=== PATIENT | male | born 1975 | race Caucasian/White ===

== ENCOUNTER 2021-05-05 14:39 | Inpatient (IN) | payer OTHER, SELFPAY ==
--- NOTE | ~2021-05-05 | XR_ITS ---
EXAMINATION: XR FOOT, RIGHT CLINICAL INFORMATION: Injection of the fifth toe. COMPARISON: None TECHNIQUE: AP, lateral, and oblique views of the right foot. 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 There is destruction of bone involving the distal phalanx of the fifth toe with loss of the distal tuft and portions of the distal shaft of the bone. Low-attenuation of bone extends all way to the subarticular bone of the distal phalanx. The fifth toe proximal phalange is normal. There has been prior amputation of the third toe at the distal shaft of the metatarsal. No other area of destruction of bone. Small vessel calcifications in the soft tissues of the foot consistent with diabetes. Large bone spur at the dorsum of the talus at the talonavicular joint. There are bone spurs of the calcaneus at the plantar surface and posterior surface of the calcaneus. XR/XR foot RT min 3V IMPRESSION: Destruction of the distal phalange of the fifth toe consistent with osteomyelitis. The proximal phalange remains intact.
[2021-05-05 15:06] VITALS: BP 149/89; PULSE 81; RESP 18; TEMP 36.8; O2SAT 98; BMI 45.4
[2021-05-05 16:31] LABS: MANUAL DIFF FLAG NO
[2021-05-05 16:35] LABS: Basophils Percent Auto 0.5 % (0-2); Eosinophils Percent Auto 0.6 % (0-4); Hematocrit 35.6 % (42.0-52.0); Hemoglobin 12.5 g/dl (14.0-18.0); Imm Gran Abs Auto 0.09 X10*3/uL (0.00-0.03); Imm Gran Pct Auto 1.4 % (0.0-0.4); Lymphocytes Absolute Auto 1.2 X10*3/uL (1.2-4.9); Lymphocytes Percent Auto 17.9 % (20-40); Mean Corpuscular HGB Conc 35.1 g/dl (31.0-36.0); Mean Corpuscular Hemoglobin 31.3 pg (27.0-33.0); Mean Corpuscular Volume 89.2 fL (80.0-98.0); Mean Platelet Volume 11.7 fL (9.4-12.4); Monocytes Absolute Auto 0.6 X10*3/uL (0.1-1.2); Monocytes Percent Auto 8.9 % (2-11); Neutrophils Absolute Auto 4.7 x10*3/uL (2.0-8.3); Neutrophils Percent Auto 70.7 % (45-73); Platelet Count 246 X10*3/uL (160-400); Red Blood Count 3.99 X10*6/uL (4.60-5.80); White Blood Count 6.7 X10*3/uL (4.8-10.8)
[2021-05-05 17:07] LABS: Anion Gap 12 (12-20); Blood Urea Nitrogen 22 mg/dL (9-16); Calcium 8.9 mg/dL (8.4-10.2); Carbon Dioxide 28 mmol/L (22-29); Chloride 99 mmol/L (96-108); Creatinine Clr Calc Pharmacy 82.8; Estimated Glomerular Filt Rate 57; Glucose Random 400 mg/dL (60-115); Potassium 4.8 mmol/L (3.3-5.1); Sodium 134 mmol/L (135-145)
[2021-05-05 17:19] VITALS: BP 137/79; PULSE 83; RESP 17; TEMP 37.5; O2SAT 97
--- NOTE | 2021-05-05 17:33 | ED.GENADULT ---
HPI - General Adult General Chief complaint: Wound/Laceration Stated complaint: wound check Time Seen by Provider: 05/05/21 17:24 Source: patient Mode of arrival: ambulatory Limitations: no limitations History of Present Illness HPI narrative: 45-year-old male with past medical history of diabetes noncompliant presents to ED for worsening right foot wound. Patient states wound now is necrotic. Patient states no fever chills. Patient states the reason he is not compliant with his diabetes medications because he has been without insulin for the past 2 months. Patient states he called his primary care provider and stated would not be able to prescribe a new insulin prescription until we see him. Patient states he does not have appointment for next week. Related Data Home Medications Medication Instructions Recorded Confirmed aspirin 81 mg chewable tablet 81 mg PO DAILY 05/05/21 05/05/21 atorvastatin 80 mg tablet 80 mg PO DAILY 05/05/21 05/05/21 insulin glargine 100 unit/mL (3 40 unit SUBCUT DAILY 05/05/21 05/05/21 mL) subcutaneous pen (Lantus Solostar U-100 Insulin) insulin lispro 100 unit/mL 1 sliding scale dose SUBCUT TID 05/05/21 05/05/21 subcutaneous pen (Humalog KwikPen (U-100) Insulin) lisinopril 20 mg tablet 20 mg PO DAILY 05/05/21 05/05/21 Allergies Allergy/AdvReac Type Severity Reaction Status Date / Time piperacillin [From ZOSYN] Allergy Unknown SWELLING Verified 05/05/21 15:05 tazobactam [From ZOSYN] Allergy Unknown SWELLING Verified 05/05/21 15:05 Review of Systems Review of Systems: Infected foot Yes all other systems are reviewed and are negative [facility] Past Medical History Medical History (Updated 05/05/21 @ 20:42 by BAKARI Flores) Diabetes mellitus, type 2 Social History Social History Advance Directives: No Advance Directives Information Provided: No Physical Exam Vital Signs: Vital Signs: Last Vital Signs Temp 99.5 F 05/05/21 17:19 Pulse 83 05/05/21 17:19 Resp 17 05/05/21 17:19 BP 137/79 05/05/21 17:19 Pulse Ox 97 05/05/21 17:19 BMI result Body Mass Index 45.4 Const: General: cooperative, healthy appearing, comfortable, no acute distress, well developed and alert Orientation/consciousness: patient oriented x3 HENMT: Head: Yes normal to inspection, Yes No palpable skull fracture present, Yes normocephalic and Yes atraumatic Eyes: General: appearance normal, both eyes and all related structures Neck: Neck: Yes normal visual inspection, Yes full ROM, Yes no lymphadenopathy, Yes no meningeal signs, Yes trachea midline, Yes supple, No anterior neck swelling and No tender Chest: Chest palpation & inspection: normal inspection of the chest and normal palpation of entire chest wall Resp: Effort & Inspection: normal respiratory effort and able to speak in complete sentences Auscultation: clear to auscultation bilaterally Cardio: Jugular venous distension: no JVD Heart sounds: S1 normal heart sound present and S2 normal heart sound present GI: Inspection: Yes normal to inspection and No abdominal wall ecchymosis Palpation (GI): Soft to palpation, not firm, nontender, no guarding and not rigid : General: No CVA tenderness and Yes no CVA tenderness Back/Spine/Pelvis: Back: no CVA tenderness, No CVA tenderness and No ecchymosis Skin: General skin exam: no rashes or lesions noted and elasticity normal Neuro: General: patient oriented x3, no meningeal signs and CN's II-XI intact bilaterally Cranial nerves: Yes CN's II-XII intact bilaterally Extrem: Other: infected foot Psych: Appearance: grossly normal, well kempt and not disheveled Course Course Course Narrative: Had rapid medical screen done Reevaluation(s) Reevaluation #1: X-ray shows osteomyelitis. Glucose over 400. FLuids ordered. Antibiotics ordered Time: 18:40 Reevaluation #2: Patient admitted for osteomyelitis. Time: 20:40 Medical Decision Making [facility] Narrative Medical decision making narrative: Osteomyelitis Lab Data Result diagrams: 05/05/21 16:25 05/05/21 16:25 Labs: Lab Results 05/05/21 05/05/21 05/05/21 Range/Units 16:25 16:25 17:43 WBC 6.7 (4.8-10.8) X10*3/uL RBC 3.99 L (4.60-5.80) X10*6/uL Hgb 12.5 L (14.0-18.0) g/dl Hct 35.6 L (42.0-52.0) % MCV 89.2 (80.0-98.0) fL MCH 31.3 (27.0-33.0) pg MCHC 35.1 (31.0-36.0) g/dl RDW 12.0 (11.0-16.0) % Plt Count 246 (160-400) X10*3/uL MPV 11.7 (9.4-12.4) fL Immature Gran % (Auto) 1.4 H (0.0-0.4) % Neut % (Auto) 70.7 (45-73) % Lymph % (Auto) 17.9 L (20-40) % [place] % (Auto) 8.9 (2-11) % Eos % (Auto) 0.6 (0-4) % Baso % (Auto) 0.5 (0-2) % Lymph # (Auto) 1.2 (1.2-4.9) X10*3/uL [place] # (Auto) 0.6 (0.1-1.2) X10*3/uL Eos # (Auto) 0.0 (0.0-0.4) X10*3/uL Baso # (Auto) 0.0 (0.0-0.2) X10*3/uL Abs Immat Gran (auto) 0.09 H (0.00-0.03) X10*3/uL Absolute Neuts (auto) 4.7 (2.0-8.3) x10*3/uL Absolute Nucleated RBC 0.000 (0.0-0.012) X10*3/uL Nucleated RBC % (auto) 0.0 (0.0-0.2) /100WBC ESR (0-15) MM/HR Sodium 134 L (135-145) mmol/L Potassium 4.8 (3.3-5.1) mmol/L Chloride 99 (96-108) mmol/L Carbon Dioxide 28 (22-29) mmol/L Anion Gap 12 (12-20) BUN 22 H (9-16) mg/dL Creatinine 1.36 (0.5-1.4) mg/dL Estim Creat Clear Calc 82.8 Estimated GFR 57 Random Glucose 400 H* (60-115) mg/dL Lactic Acid (0.5-2.0) mmol/L Calcium 8.9 (8.4-10.2) mg/dL C-Reactive Protein (< or = 0.50) mg/dL Acetone, Qual (Negative) COVID-19 ([facility]) Negative (Negative) COVID-19 Clin Com See Note 05/05/21 05/05/21 05/05/21 Range/Units 17:54 17:54 17:55 WBC (4.8-10.8) X10*3/uL RBC (4.60-5.80) X10*6/uL Hgb (14.0-18.0) g/dl Hct (42.0-52.0) % MCV (80.0-98.0) fL MCH (27.0-33.0) pg MCHC (31.0-36.0) g/dl RDW (11.0-16.0) % Plt Count (160-400) X10*3/uL MPV (9.4-12.4) fL Immature Gran % (Auto) (0.0-0.4) % Neut % (Auto) (45-73) % Lymph % (Auto) (20-40) % [place] % (Auto) (2-11) % Eos % (Auto) (0-4) % Baso % (Auto) (0-2) % Lymph # (Auto) (1.2-4.9) X10*3/uL [place] # (Auto) (0.1-1.2) X10*3/uL Eos # (Auto) (0.0-0.4) X10*3/uL Baso # (Auto) (0.0-0.2) X10*3/uL Abs Immat Gran (auto) (0.00-0.03) X10*3/uL Absolute Neuts (auto) (2.0-8.3) x10*3/uL Absolute Nucleated RBC (0.0-0.012) X10*3/uL Nucleated RBC % (auto) (0.0-0.2) /100WBC ESR 86 H (0-15) MM/HR Sodium (135-145) mmol/L Potassium (3.3-5.1) mmol/L Chloride (96-108) mmol/L Carbon Dioxide (22-29) mmol/L Anion Gap (12-20) BUN (9-16) mg/dL Creatinine (0.5-1.4) mg/dL Estim Creat Clear Calc Estimated GFR Random Glucose (60-115) mg/dL Lactic Acid 1.1 (0.5-2.0) mmol/L Calcium (8.4-10.2) mg/dL C-Reactive Protein 2.86 H (< or = 0.50) mg/dL Acetone, Qual Negative (Negative) COVID-19 ([facility]) (Negative) COVID-19 Clin Com Discharge Plan Discharge Clinical Impression: Osteomyelitis Patient Disposition: Admitted As Inpatient
--- NOTE | 2021-05-05 18:04 | PHA.MEDREC ---
MED REC COMPLETE, PATIENT HAS REPORTED HE HAS BEEN WITHOUT INSULIN FOR A COUPLE OF WEEKS Pharmacy Consult ? Medication Reconciliation Pharmacy has completed the medication reconciliation.
[2021-05-05 18:09] LABS: Acetone, serum QL Negative (Negative)
[2021-05-05 18:14] LABS: Lactic Acid 1.1 mmol/L (0.5-2.0)
[2021-05-05 18:16] LABS: COVID-19 Test Negative (Negative); IDNOW Serial# 9DD0AD1C
[2021-05-05 18:17] LABS: C Reactive Protein 2.86 mg/dL (< or = 0.50)
[2021-05-05] MEDS: vancomycin HCL 1,500 MG in 0.9 % Sodium Chloride 500 ML 333.33 MG IV (18:40)
[2021-05-05] MEDS: 0.9 % Sodium Chloride 1,000 ML 999 ML IV ×2 (18:43→18:44)
[2021-05-05 18:47] LABS: Erythrocyte Sedimentation Rate 86 MM/HR (0-15)
[2021-05-05] MEDS: Insulin Regular, Human 100 UNIT/ML 3 ML VIAL 10 UNIT IVPUSH (20:30)
[2021-05-05 20:43] VITALS: BP 144/80; PULSE 82; RESP 17; O2SAT 97
[2021-05-05 20:55] LABS: Glucose, Whole Blood 239 mg/dL (60-115)
--- NOTE | 2021-05-05 21:21 | PHA.PROG ---
Admission Date/Time: May 05, 2021 20:37 Indication: Osteomyelitis Weight in k.202 kg Adjusted body weight in K.6 kg [place] body weight in K.2 kg Obesity Dosing Indication % IBW: 203% Serum Creatinine - Last 168 Hours 05/05/21 16:25 Creatinine 1.36 Estimated CrCl and GFR - Last 168 Hours 05/05/21 16:25 Estim Creat Clear Calc 82.8 Estimated GFR 57 Vancomycin Loading Dose: 1500 mg (12.5 mg/kg) Current Vancomycin Dosing Regimen: 750 mg Q12H Date and Time for next Vancomycin Level to be drawn: 05/07 @ 0400 Pharmacist Comments on Vancomycin Plan: Patient is morbidly obese and requires obesity dose. Loading dose 1500 mg given 05/05 @ 1840. Maintenance dose 750 mg Q12H to be start 05/06 @ 0600. Expected AUC 478 with a trough of 15. Patient should be in therpautic levels after 2nd dose. Trough to be drawn prior to 4th dose. Pharmacy to monitor renal function daily Therese Taylor PharmD Vancomycin dosing will take advantage of [employer] as a clinical decision support tool that uses Bayesian modeling to calculate individual patient's pharmacokinetic parameters and forecast the patient's drug concentration time course with the target goal AUC 24 range of 400 - 600 mg/L/hr.
[2021-05-05] MEDS: Insulin Glargine,Hum.rec.anlog 100 UNIT/ML 10 ML VIAL 40 UNIT SUBCUT (21:59)
[2021-05-05] MEDS: Heparin Sodium,Porcine 5,000 UNIT/ML VIAL 5000 UNIT SUBCUT (22:00)
[2021-05-05] MEDS: cefEPime HCl 2 GM in 0.9 % Sodium Chloride 50 ML IV (22:01)
[2021-05-05 22:10] VITALS: TEMP 37.4
[2021-05-05] MEDS: 0.9 % Sodium Chloride Flush 3 ML SYRINGE IVFLUSH (23:11)
[2021-05-06] VITALS (7 sets, daily range): BP systolic 104–155; BP diastolic 60–86; PULSE 75–87; RESP 15–18; TEMP 36.2–37.3; O2SAT 94–97
--- NOTE | 2021-05-06 01:22 | PC.NURSE ---
PT MOVED TO ROOM 14. REPORT GIVEN AND CARE TRANSFERRED TO BALTAZAR GUTIERREZ.
[2021-05-06 03:34] LABS: Glucose, Whole Blood 270 mg/dL (60-115)
--- NOTE | 2021-05-06 06:07 | PM.IMHP ---
History of Present Illness Date of Service: 05/05/21 Chief Complaint: non-healing foot ulcer this is a 45-year-old male with past medical history of diabetes, noncompliant with Insulin presents to the hospital with complaints of nonhealing right foot wound. Patient reports that this has been going on for the past 3 weeks, he was seen at [facility], has a history of osteomyelitis with amputation of his 3rd right toe, he was given p.o. antibiotics, finished about a week ago, with worsening 5th toe wound, that is now draining and painful. patient reports malodorous bloody drainage, pain that shoots of to his leg, denies any fever or chills, no chest pain, no shortness of breath, no abdominal pain nausea or vomiting, no diarrhea constipation, no urinary symptoms and no lower extremity edema otherwise. Patient reports that he stopped taking his insulin about 2 months ago due to Not seeing his PCP. He has been managing his high glucose with fluid intake. On arrival to the ED patient hemodynamically stable with no significant abnormal vitals Labs are significant for WBC count of 6.7, hemoglobin of 12.5, ESR of 86, glucose of 400, CRP of 2.86, COVID-19 negative Foot x-ray shows destruction of the distal phalanges of the 5th toe consistent with osteomyelitis patient will be admitted for further management Review of Systems Review of Systems: Yes all other systems are reviewed and are negative [facility] Medical History (Updated 05/06/21 @ 06:15 by Shayan Aparicio MD) Diabetes mellitus, type 2 History of amputation of toe Osteomyelitis Family History (Updated 05/06/21 @ 06:12 by Shayan Aparicio MD) Mother Hypertension Father Diabetes Social History Advance Directives: No Advance Directives Information Provided: No Meds Allergies Allergy/AdvReac Type Severity Reaction Status Date / Time piperacillin [From ZOSYN] Allergy Unknown SWELLING Verified 05/05/21 15:05 tazobactam [From ZOSYN] Allergy Unknown SWELLING Verified 05/05/21 15:05 Active Medications: Current Medications Acetaminophen (Acetaminophen 325 Mg Tablet) 650 mg PO Q6H PRN PRN Reason: Pain, Mild (Pain Scale 1-3) Dextrose (Dextrose 50 % 25 Gm/50 Ml Syringe) 25 gm IVPUSH Q15M PRN; Protocol PRN Reason: per Hypoglycemia Standing Ord. Docusate Sodium (Docusate Sodium 100 Mg Capsule) 100 mg PO DAILY PRN PRN Reason: Constipation Glucose (Glucose Gel 15 Gm Gel..Gram.) 15 gm PO Q15M PRN; Protocol PRN Reason: per Hypoglycemia Standing Ord. Heparin Sodium (Porcine) (Heparin Sodium,Porcine 5,000 Unit/Ml Vial) 5,000 unit SUBCUT Q12H [facility] Last Admin: 05/05/21 22:00 Dose: 5,000 unit Documented by: Cefepime HCl 2 gm/ Sodium (Chloride) 50 mls @ 100 mls/hr IV Q8H [facility] Last Infusion: 05/05/21 23:11 Dose: Infused Documented by: Vancomycin HCl 750 mg/ Sodium (Chloride) 265 mls @ 265 mls/hr IV Q12H [facility] Insulin Human Lispro (Insulin Lispro 100 Unit/Ml 3 Ml Vial) 0 unit SUBCUT QIDACHS [facility]; Protocol Last Admin: 05/05/21 22:03 Dose: Not Given Documented by: Ondansetron HCl (Ondansetron Hcl 4 Mg/2 Ml Vial) 4 mg IVPUSH Q8H PRN PRN Reason: Nausea and Vomiting Pharmacy Consult (Consult Rx Perform Med Rec) 1 each MISCELLANE ONCE PRN PRN Reason: Consult order Pharmacy Consult (Consult Rx Vancomycin Dosing) 1 each MISCELLANE DAILY PRN PRN Reason: Consult order Sodium Chloride (0.9 % Sodium Chloride Flush 3 Ml Syringe) 3 ml IVFLUSH QSHIFT [facility] Last Admin: 05/05/21 23:11 Dose: 3 ml Documented by: Home Medications Medication Instructions Recorded Confirmed Last Taken Type aspirin 81 mg chewable tablet 81 mg PO DAILY 05/05/21 05/05/21 05/05/21 History atorvastatin 80 mg tablet 80 mg PO DAILY 05/05/21 05/05/21 05/05/21 History insulin glargine 100 unit/mL (3 40 unit SUBCUT DAILY 05/05/21 05/05/21 Unknown History mL) subcutaneous pen (Lantus Solostar U-100 Insulin) insulin lispro 100 unit/mL 1 sliding scale dose SUBCUT TID 05/05/21 05/05/21 Unknown History subcutaneous pen (Humalog KwikPen (U-100) Insulin) lisinopril 20 mg tablet 20 mg PO DAILY 05/05/21 05/05/21 05/05/21 History Physical Exam Vital Signs and Narrative: Vital Signs: Last Vital Signs Temp 99.4 F 05/05/21 22:10 Pulse 75 05/06/21 05:17 Resp 15 05/06/21 05:17 BP 134/73 05/06/21 05:17 Pulse Ox 94 05/06/21 05:17 BMI result Body Mass Index 45.4 Const: General: cooperative and no acute distress Orientation/consciousness: patient oriented x3 Eyes: General: appearance normal, both eyes and all related structures Pupils: Equal, round and reactive pupils present Resp: Effort & Inspection: normal respiratory effort, able to speak in complete sentences and abnormal respiratory pattern Auscultation: clear to auscultation bilaterally Cardio: Rate: regular rate Rhythm: regular rhythm GI: Palpation (GI): Soft to palpation Auscultation: normal bowel sounds Skin: General skin exam: no rashes or lesions noted Neuro: General: patient oriented x3 Cranial nerves: Yes Equal, round and reactive pupils present Cognition (Neuro): normal cognition Extrem: Other: right 5th toe gangrenous, exposed bone tissue, see pictures below Results Labs CBC and Chem 7: 05/05/21 16:25 05/05/21 16:25 Labs: Laboratory Results - last 24 hr 05/05/21 05/05/21 05/05/21 16:25 16:25 17:43 MCV 89.2 MCH 31.3 MCHC 35.1 RDW 12.0 Plt Count 246 MPV 11.7 Immature Gran % (Auto) 1.4 H Neut % (Auto) 70.7 Lymph % (Auto) 17.9 L [place] % (Auto) 8.9 Eos % (Auto) 0.6 Baso % (Auto) 0.5 Lymph # (Auto) 1.2 [place] # (Auto) 0.6 Eos # (Auto) 0.0 Baso # (Auto) 0.0 Abs Immat Gran (auto) 0.09 H Absolute Neuts (auto) 4.7 Absolute Nucleated RBC 0.000 Nucleated RBC % (auto) 0.0 ESR Anion Gap 12 Estim Creat Clear Calc 82.8 Estimated GFR 57 POC Glucose Random Glucose 400 H* Lactic Acid Calcium 8.9 C-Reactive Protein Acetone, Qual COVID-19 ([facility]) Negative COVID-19 Clin Com See Note 02/07/22 02/07/22 02/07/22 17:54 17:54 17:55 MCV MCH MCHC RDW Plt Count MPV Immature Gran % (Auto) Neut % (Auto) Lymph % (Auto) [place] % (Auto) Eos % (Auto) Baso % (Auto) Lymph # (Auto) [place] # (Auto) Eos # (Auto) Baso # (Auto) Abs Immat Gran (auto) Absolute Neuts (auto) Absolute Nucleated RBC Nucleated RBC % (auto) ESR 86 H Anion Gap Estim Creat Clear Calc Estimated GFR POC Glucose Random Glucose Lactic Acid 1.1 Calcium C-Reactive Protein 2.86 H Acetone, Qual Negative COVID-19 ([facility]) COVID-19 [employer] Com 05/05/21 05/06/21 20:50 03:30 MCV MCH MCHC RDW Plt Count MPV Immature Gran % (Auto) Neut % (Auto) Lymph % (Auto) [place] % (Auto) Eos % (Auto) Baso % (Auto) Lymph # (Auto) [place] # (Auto) Eos # (Auto) Baso # (Auto) Abs Immat Gran (auto) Absolute Neuts (auto) Absolute Nucleated RBC Nucleated RBC % (auto) ESR Anion Gap Estim Creat Clear Calc Estimated GFR POC Glucose 239 H 270 H Random Glucose Lactic Acid Calcium C-Reactive Protein Acetone, Qual COVID-19 ([facility]) COVID-19 [facility] Imaging Radiologist's Impressions: Impressions Foot X-Ray 05/05/21 15:21 IMPRESSION: Destruction of the distal phalange of the fifth toe consistent with osteomyelitis. The proximal phalange remains intact. Assessment and Plan (1) Osteomyelitis: Status: Acute (2) Diabetic foot infection: Status: Acute (3) Hyperglycemia: Status: Acute Plan 45-year-old male with diabetes noncompliant with his insulin presents to the hospital with complaints of non-healing foot wound # osteomyelitis - right 5th metatarsal - ESR and CRP elevated, x-ray of the foot shows osteomyelitis - will start him on broad-spectrum antibiotics - infectious disease and general surgery consulted - follow cultures - given x-ray finding, MRI will be held # hyperglycemia - patient with history of diabetes and noncompliance with insulin - will resume his home insulin, add low-dose sliding scale insulin, will obtain hemoglobin A1c - diabetic diet - POC q.i.d. a.c. H DVT prophylaxis: SCDs in anticipation of possible surgical intervention Quality Stroke Does the patient have a stroke diagnosis?: No VTE Prior VTE?: No VTE Risk Level:: Medical - moderate - high VTE Device Contraindication: Treatment Not Indicated VTE Drug Contraindication: N/A - Med Ordered
[2021-05-06] MEDS: cefEPime HCl 2 GM in 0.9 % Sodium Chloride 50 ML IV ×3 (06:10→20:05)
[2021-05-06] MEDS: vancomycin HCL 750 MG in 0.9 % Sodium Chloride 250 ML 265 MG IV (06:28)
[2021-05-06 06:40] LABS: MANUAL DIFF FLAG NO
[2021-05-06 06:50] LABS: Basophils Percent Auto 0.6 % (0-2); Eosinophils Absolute Auto 0.1 X10*3/uL (0.0-0.4); Eosinophils Percent Auto 1.5 % (0-4); Hematocrit 31.4 % (42.0-52.0); Hemoglobin 10.8 g/dl (14.0-18.0); Imm Gran Abs Auto 0.06 X10*3/uL (0.00-0.03); Imm Gran Pct Auto 1.3 % (0.0-0.4); Lymphocytes Absolute Auto 1.1 X10*3/uL (1.2-4.9); Lymphocytes Percent Auto 23.5 % (20-40); Mean Corpuscular HGB Conc 34.4 g/dl (31.0-36.0); Mean Corpuscular Hemoglobin 31.2 pg (27.0-33.0); Mean Corpuscular Volume 90.8 fL (80.0-98.0); Mean Platelet Volume 11.7 fL (9.4-12.4); Monocytes Absolute Auto 0.5 X10*3/uL (0.1-1.2); Monocytes Percent Auto 11.5 % (2-11); Neutrophils Absolute Auto 2.9 x10*3/uL (2.0-8.3); Neutrophils Percent Auto 61.6 % (45-73); Platelet Count 198 X10*3/uL (160-400); Red Blood Count 3.46 X10*6/uL (4.60-5.80); Red Cell Distribution Width 11.9 % (11.0-16.0); White Blood Count 4.7 X10*3/uL (4.8-10.8)
[2021-05-06 07:07] LABS: Anion Gap 11 (12-20); Blood Urea Nitrogen 17 mg/dL (9-16); Calcium 8.3 mg/dL (8.4-10.2); Carbon Dioxide 25 mmol/L (22-29); Chloride 106 mmol/L (96-108); Creatinine Clr Calc Pharmacy 112.6; Estimated Glomerular Filt Rate > 60; Glucose Random 260 mg/dL (60-115); Potassium 4.2 mmol/L (3.3-5.1); Sodium 138 mmol/L (135-145)
[2021-05-06 07:31] LABS: Glucose, Whole Blood 243 mg/dL (60-115)
[2021-05-06] MEDS: Aspirin 81 MG TAB.CHEW PO (07:55)
[2021-05-06] MEDS: lisinopriL 20 MG TABLET PO (07:55)
[2021-05-06] MEDS: Insulin Lispro 100 UNIT/ML 3 ML VIAL SUBCUT ×4 (07:55→20:05)
[2021-05-06] MEDS: 0.9 % Sodium Chloride Flush 3 ML SYRINGE IVFLUSH ×3 (08:21→20:06)
[2021-05-06 09:02] LABS: Hemoglobin A1c % > 14.0 %
--- NOTE | 2021-05-06 09:28 | HE.PHANOTE ---
Vancomycin Dosing Addendum Pts Scr 1.00 ( down from 1.36 yesterday). Changed regimen to 1000 mg Q12H for predicted AUC 476. NExt trough 05/07/21 @0400.
[2021-05-06 11:26] LABS: Glucose, Whole Blood 271 mg/dL (60-115)
--- NOTE | 2021-05-06 12:04 | P.PNIM_ITS ---
Subjective Subjective Date of Service: 05/06/21 Interval History: No acute complaints this morning, has good peripheral sensations denies fever chills, good pain control, blood sugars improved to 200 range, at baseline complain of pain lower leg with ambulation, get better with rest. Denies nausea, vomiting tolerating diet, no abdominal pain, no diarrhea. Review of Systems Review of Systems: Yes all other systems are reviewed and are negative Physical Exam Vital Signs: Vital Signs: Last Vital Signs Temp 98.7 F 05/06/21 11:26 Pulse 78 05/06/21 11:26 Resp 18 05/06/21 11:26 BP 139/83 05/06/21 11:26 Pulse Ox 96 05/06/21 11:26 BMI result Body Mass Index 45.4 Const: Other: General Awake alert resting in bed, no acute distress. Neck no JVD. CVS regular rate rhythm, Respiratory lungs clear to auscultation, no respiratory distress. 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 Skin no rash Objective Data Active Medications Acetaminophen (Acetaminophen 325 Mg Tablet) 650 mg PO Q6H PRN PRN Reason: Pain, Mild (Pain Scale 1-3) Aspirin (Aspirin 81 Mg Tab.Chew) 81 mg PO DAILY [facility] Last Admin: 05/06/21 07:55 Dose: 81 mg Documented by: GONSALO Atorvastatin Calcium (Atorvastatin Calcium 80 Mg Tablet) 80 mg PO BEDTIME [facility] Dextrose (Dextrose 50 % 25 Gm/50 Ml Syringe) 25 gm IVPUSH Q15M PRN; Protocol PRN Reason: per Hypoglycemia Standing Ord. Docusate Sodium (Docusate Sodium 100 Mg Capsule) 100 mg PO DAILY PRN PRN Reason: Constipation Glucose (Glucose Gel 15 Gm Gel..Gram.) 15 gm PO Q15M PRN; Protocol PRN Reason: per Hypoglycemia Standing Ord. Cefepime HCl 2 gm/ Sodium (Chloride) 50 mls @ 100 mls/hr IV Q8H [facility] Last Infusion: 05/06/21 06:27 Dose: 0 mls/hr Documented by: FRANCO Vancomycin HCl 1,000 mg/ (Sodium Chloride) 270 mls @ 270 mls/hr IV Q12H [facility] Insulin Glargine (Insulin Glargine,Hum.Rec.Anlog 100 Unit/Ml 10 Ml Vial) 40 unit SUBCUT BEDTIME [facility] Insulin Human Lispro (Insulin Lispro 100 Unit/Ml 3 Ml Vial) 0 unit SUBCUT QIDACHS [facility]; Protocol Last Admin: 05/06/21 11:59 Dose: 6 unit Documented by: NALLELY Lisinopril (Lisinopril 20 Mg Tablet) 20 mg PO DAILY [facility]; Protocol Last Admin: 05/06/21 07:55 Dose: 20 mg Documented by: GONSALO Ondansetron HCl (Ondansetron Hcl 4 Mg/2 Ml Vial) 4 mg IVPUSH Q8H PRN PRN Reason: Nausea and Vomiting Pharmacy Consult (Consult Rx Perform Med Rec) 1 each MISCELLANE ONCE PRN PRN Reason: Consult order Pharmacy Consult (Consult Rx Vancomycin Dosing) 1 each MISCELLANE DAILY PRN PRN Reason: Consult order Sodium Chloride (0.9 % Sodium Chloride Flush 3 Ml Syringe) 3 ml IVFLUSH QSHIFT [facility] Last Admin: 05/06/21 08:21 Dose: 3 ml Documented by: GONSALO Labs CBC & Chem 7: 05/06/21 06:33 05/06/21 06:33 Labs: Laboratory Results - last 24 hr 05/05/21 05/05/21 05/05/21 16:25 16:25 17:43 MCV 89.2 MCH 31.3 MCHC 35.1 RDW 12.0 Plt Count 246 MPV 11.7 Immature Gran % (Auto) 1.4 H Neut % (Auto) 70.7 Lymph % (Auto) 17.9 L [place] % (Auto) 8.9 Eos % (Auto) 0.6 Baso % (Auto) 0.5 Lymph # (Auto) 1.2 [place] # (Auto) 0.6 Eos # (Auto) 0.0 Baso # (Auto) 0.0 Abs Immat Gran (auto) 0.09 H Absolute Neuts (auto) 4.7 Absolute Nucleated RBC 0.000 Nucleated RBC % (auto) 0.0 ESR Anion Gap 12 Estim Creat Clear Calc 82.8 Estimated GFR 57 POC Glucose Random Glucose 400 H* Estimat Average Glucose Hemoglobin A1c % Lactic Acid Calcium 8.9 C-Reactive Protein Acetone, Qual COVID-19 ([facility]) Negative COVID-19 Clin Com See Note 05/05/21 05/05/21 05/05/21 17:54 17:54 17:55 MCV MCH MCHC RDW Plt Count MPV Immature Gran % (Auto) Neut % (Auto) Lymph % (Auto) [place] % (Auto) Eos % (Auto) Baso % (Auto) Lymph # (Auto) [place] # (Auto) Eos # (Auto) Baso # (Auto) Abs Immat Gran (auto) Absolute Neuts (auto) Absolute Nucleated RBC Nucleated RBC % (auto) ESR 86 H Anion Gap Estim Creat Clear Calc Estimated GFR POC Glucose Random Glucose Estimat Average Glucose Hemoglobin A1c % Lactic Acid 1.1 Calcium C-Reactive Protein 2.86 H Acetone, Qual Negative COVID-19 ([facility]) COVID-[facility] 05/05/21 05/05/21 05/06/21 20:50 21:32 03:30 MCV MCH MCHC RDW Plt Count MPV Immature Gran % (Auto) Neut % (Auto) Lymph % (Auto) [place] % (Auto) Eos % (Auto) Baso % (Auto) Lymph # (Auto) [place] # (Auto) Eos # (Auto) Baso # (Auto) Abs Immat Gran (auto) Absolute Neuts (auto) Absolute Nucleated RBC Nucleated RBC % (auto) ESR Anion Gap Estim Creat Clear Calc Estimated GFR POC Glucose 239 H 270 H Random Glucose Estimat Average Glucose TNP Hemoglobin A1c % > 14.0 Lactic Acid Calcium C-Reactive Protein Acetone, Qual COVID-19 ([facility]) COVID-[facility] 05/06/21 05/06/21 05/06/21 06:33 06:33 07:20 MCV 90.8 MCH 31.2 MCHC 34.4 RDW 11.9 Plt Count 198 MPV 11.7 Immature Gran % (Auto) 1.3 H Neut % (Auto) 61.6 Lymph % (Auto) 23.5 [place] % (Auto) 11.5 H Eos % (Auto) 1.5 Baso % (Auto) 0.6 Lymph # (Auto) 1.1 L [place] # (Auto) 0.5 Eos # (Auto) 0.1 Baso # (Auto) 0.0 Abs Immat Gran (auto) 0.06 H Absolute Neuts (auto) 2.9 Absolute Nucleated RBC 0.000 Nucleated RBC % (auto) 0.0 ESR Anion Gap 11 L Estim Creat Clear Calc 112.6 Estimated GFR > 60 POC Glucose 243 H Random Glucose 260 H Estimat Average Glucose Hemoglobin A1c % Lactic Acid Calcium 8.3 L D C-Reactive Protein Acetone, Qual COVID-19 ([facility]) COVID-19 Clin Com 05/06/21 11:22 MCV MCH MCHC RDW Plt Count MPV Immature Gran % (Auto) Neut % (Auto) Lymph % (Auto) [place] % (Auto) Eos % (Auto) Baso % (Auto) Lymph # (Auto) [place] # (Auto) Eos # (Auto) Baso # (Auto) Abs Immat Gran (auto) Absolute Neuts (auto) Absolute Nucleated RBC Nucleated RBC % (auto) ESR Anion Gap Estim Creat Clear Calc Estimated GFR POC Glucose 271 H Random Glucose Estimat Average Glucose Hemoglobin A1c % Lactic Acid Calcium C-Reactive Protein Acetone, Qual COVID-19 ([facility]) COVID-19 Clin Com Assessment and Plan (1) Hyperglycemia: Status: Acute (2) Diabetic foot infection: Status: Acute (3) Osteomyelitis: Status: Acute Plan 45-year-old male with diabetes noncompliant with his insulin presents to the hospital with complaints of non-healing foot wound #? Acute Diabetic wound right 5th toe distal phalanx with osteomyelitis ESR and CRP elevated, x-ray of the foot shows osteomyelitis distal phalanx right 5th toe failed outpatient antibiotic treatment, continue IV vancomycin and cefepime day 1 ? follow infectious disease and general surgery recommendation ? follow blood cultures, no evidence of sepsis # ? hyperglycemia with history of diabetes mellitus on insulin ? noncompliance with insulin hemoglobin A1c 14 ? continue Lantus, low-dose sliding scale insulin, diabetic diet will obtain hemoglobin A1c # morbid obesity weight reduction low-calorie diet recommended, obesity contributing to poor blood sugar control ? ?DVT prophylaxis:? SCDs in anticipation of possible surgical intervention Quality Stroke Does the patient have a stroke diagnosis?: No VTE Prior VTE?: No VTE Risk Level:: Medical - moderate - high VTE Device Contraindication: Treatment Not Indicated VTE Drug Contraindication: N/A - Med Ordered
--- NOTE | 2021-05-06 12:56 | MHC.CM.PN ---
EMR REVIEWED, PT ADMITTED W/OSTEOMYELITIS IN R 5TH TOE, PT IS A&OX4, REPORTS HE WORKS AT [employer], LIVES W/S.O. IS INDEPENDENT W/ALL CARE, NO DME AND NO HOME SERVICES, PT REPORTS HE STOPPED TAKING HIS INSULIN AND HIS GLUCOMETER IS BROKEN, PT WILL NEEDS SCRIPTS FOR BOTH UPON D/C. PT VERIFIES PCP IS [facility] AND PT EDUCATED ON HCP'S HOWEVER PT DECLINING AT THIS TIME. PT DECLINING STR AT THIS TIME AND WANTS HOME W/SERVICES, PT DOES NOT WANT THE SAME HI HE HAD IN 2018 SO REFERRAL PLACED TO [facility] HE HAD [facility], PT WOULD ALSO LIKE [facility] HOWEVER IS OPEN TO [facility] IF THEY ARE UNABLE TO PROVIDE SERVICE FOR PT. PT IS OPEN TO STR IF HE HAS TO HAVE AN AMP AND HAS DIFFICULTY WALKING HOWEVER REPORTS HE WENT HOME AFTER HIS LAST TOE AMP SO IS HOPING HE WILL NOT NEED STR. D/C PLAN: HOME W/[facility] &HI VS AMP, PT WILL ARRANGE TRANSPORT.
--- NOTE | 2021-05-06 14:29 | PM.CNGS ---
History of Present Illness Consult details Consult date: 05/06/21 Narrative: 45-year-old male with known diabetes, admitted last night because of pain on the right foot. He has had a wound on the 5th toe for about a month now which has been draining on and off. He actually had been seen recently in [facility] and was prescribed antibiotics. However he does not think that this has helped at all. He had increasing pain and with persistent drainage and discoloration, he went to the ER last night. He has a history of 3rd toe amputation 3 years ago done in [facility]. He admits to poorly compliant with regards to his diabetes. He said he has not seen his primary care physician in a while. Review of Systems Constitutional: Constitutional: Denies chills and Denies fever(s) Cardiovascular: Cardiovascular: Denies chest pain, Denies dyspnea and Denies dyspnea on exertion Respiratory: Respiratory: Denies cough, Denies dyspnea and Denies dyspnea on exertion Gastrointestinal: Gastrointestinal: Denies hematochezia and Denies change in bowel habits Genitourinary: Genitourinary: Denies hematuria and Denies difficulty urinating Musculoskeletal: Musculoskeletal: Denies back pain and Denies limited range of motion Neurologic: Denies focal weakness and Denies convulsions Psychiatric: Psychiatric: Denies depression and Denies mood swings PMFSH Past Medical History Medical History Diabetes mellitus, type 2 History of amputation of toe Osteomyelitis Family History Family History Mother Hypertension Father Diabetes Social History Social History Household Members: Significant Other Housing: Apartment Do you presently have visiting nurse or other home services: No Patient Tobacco Use Status: Never used Tobacco service: No Current occupational status: employed Meds Allergies Allergy/AdvReac Type Severity Reaction Status Date / Time piperacillin [From ZOSYN] Allergy Unknown SWELLING Verified 05/05/21 15:05 tazobactam [From ZOSYN] Allergy Unknown SWELLING Verified 05/05/21 15:05 Active Medications: Current Medications Acetaminophen (Acetaminophen 325 Mg Tablet) 650 mg PO Q6H PRN PRN Reason: Pain, Mild (Pain Scale 1-3) Aspirin (Aspirin 81 Mg Tab.Chew) 81 mg PO DAILY [facility] Last Admin: 05/06/21 07:55 Dose: 81 mg Documented by: Atorvastatin Calcium (Atorvastatin Calcium 80 Mg Tablet) 80 mg PO BEDTIME [facility] Dextrose (Dextrose 50 % 25 Gm/50 Ml Syringe) 25 gm IVPUSH Q15M PRN; Protocol PRN Reason: per Hypoglycemia Standing Ord. Docusate Sodium (Docusate Sodium 100 Mg Capsule) 100 mg PO DAILY PRN PRN Reason: Constipation Glucose (Glucose Gel 15 Gm Gel..Gram.) 15 gm PO Q15M PRN; Protocol PRN Reason: per Hypoglycemia Standing Ord. Cefepime HCl 2 gm/ Sodium (Chloride) 50 mls @ 100 mls/hr IV Q8H [facility] Last Infusion: 05/06/21 13:04 Dose: Infused Documented by: Vancomycin HCl 1,000 mg/ (Sodium Chloride) 270 mls @ 270 mls/hr IV Q12H [facility] Insulin Glargine (Insulin Glargine,Hum.Rec.Anlog 100 Unit/Ml 10 Ml Vial) 40 unit SUBCUT BEDTIME [facility] Insulin Human Lispro (Insulin Lispro 100 Unit/Ml 3 Ml Vial) 0 unit SUBCUT QIDACHS [facility]; Protocol Last Admin: 05/06/21 11:59 Dose: 6 unit Documented by: Lisinopril (Lisinopril 20 Mg Tablet) 20 mg PO DAILY [facility]; Protocol Last Admin: 05/06/21 07:55 Dose: 20 mg Documented by: Ondansetron HCl (Ondansetron Hcl 4 Mg/2 Ml Vial) 4 mg IVPUSH Q8H PRN PRN Reason: Nausea and Vomiting Pharmacy Consult (Consult Rx Perform Med Rec) 1 each MISCELLANE ONCE PRN PRN Reason: Consult order Pharmacy Consult (Consult Rx Vancomycin Dosing) 1 each MISCELLANE DAILY PRN PRN Reason: Consult order Sodium Chloride (0.9 % Sodium Chloride Flush 3 Ml Syringe) 3 ml IVFLUSH QSHIFT [facility] Last Admin: 05/06/21 08:21 Dose: 3 ml Documented by: Home Medications Medication Instructions Recorded Confirmed Last Taken Type aspirin 81 mg chewable tablet 81 mg PO DAILY 05/05/21 05/05/21 05/05/21 History atorvastatin 80 mg tablet 80 mg PO DAILY 05/05/21 05/05/21 05/05/21 History insulin glargine 100 unit/mL (3 40 unit SUBCUT DAILY 05/05/21 05/05/21 Unknown History mL) subcutaneous pen (Lantus Solostar U-100 Insulin) insulin lispro 100 unit/mL 1 sliding scale dose SUBCUT TID 05/05/21 05/05/21 Unknown History subcutaneous pen (Humalog KwikPen (U-100) Insulin) lisinopril 20 mg tablet 20 mg PO DAILY 05/05/21 05/05/21 05/05/21 History Physical Exam Vital Signs: Vital Signs: Last Vital Signs Temp 98.7 F 05/06/21 11:26 Pulse 78 05/06/21 11:26 Resp 18 05/06/21 11:26 BP 139/83 05/06/21 11:26 Pulse Ox 96 05/06/21 11:26 BMI result Body Mass Index 45.4 Const: General: comfortable and no acute distress Orientation/consciousness: patient oriented x3 Neck: Neck: Yes no lymphadenopathy Resp: Auscultation: clear to auscultation bilaterally Cardio: Rhythm: regular rhythm GI: Palpation (GI): Soft to palpation, nontender and no guarding Neuro: General: patient oriented x3 Extrem: Other: Fifth toe on the right with draining wound, fibrinous debris in gangrene of the skin, nonviable tissue, also with an ulcer on the plantar aspect at the base of the 3rd toe, clean and granulating well Thick callus lateral to the 5th toe Results Labs Result diagrams: 05/06/21 06:33 05/06/21 06:33 Labs: Abnormal lab results 05/05/21 05/05/21 05/05/21 Range/Units 16:25 16:25 17:54 WBC (4.8-10.8) X10*3/uL RBC 3.99 L (4.60-5.80) X10*6/uL Hgb 12.5 L (14.0-18.0) g/dl Hct 35.6 L (42.0-52.0) % Immature Gran % (Auto) 1.4 H (0.0-0.4) % Lymph % (Auto) 17.9 L (20-40) % [place] % (Auto) (2-11) % Lymph # (Auto) (1.2-4.9) X10*3/uL Abs Immat Gran (auto) 0.09 H (0.00-0.03) X10*3/uL ESR 86 H (0-15) MM/HR Sodium 134 L (135-145) mmol/L Anion Gap (12-20) BUN 22 H (9-16) mg/dL POC Glucose (60-115) mg/dL Random Glucose 400 H* (60-115) mg/dL Calcium (8.4-10.2) mg/dL C-Reactive Protein (< or = 0.50) mg/dL 05/05/21 05/05/21 05/06/21 Range/Units 17:55 20:50 03:30 WBC (4.8-10.8) X10*3/uL RBC (4.60-5.80) X10*6/uL Hgb (14.0-18.0) g/dl Hct (42.0-52.0) % Immature Gran % (Auto) (0.0-0.4) % Lymph % (Auto) (20-40) % [place] % (Auto) (2-11) % Lymph # (Auto) (1.2-4.9) X10*3/uL Abs Immat Gran (auto) (0.00-0.03) X10*3/uL ESR (0-15) MM/HR Sodium (135-145) mmol/L Anion Gap (12-20) BUN (9-16) mg/dL POC Glucose 239 H 270 H (60-115) mg/dL Random Glucose (60-115) mg/dL Calcium (8.4-10.2) mg/dL C-Reactive Protein 2.86 H (< or = 0.50) mg/dL 05/06/21 05/06/21 05/06/21 Range/Units 06:33 06:33 07:20 WBC 4.7 L (4.8-10.8) X10*3/uL RBC 3.46 L (4.60-5.80) X10*6/uL Hgb 10.8 L (14.0-18.0) g/dl Hct 31.4 L (42.0-52.0) % Immature Gran % (Auto) 1.3 H (0.0-0.4) % Lymph % (Auto) (20-40) % [place] % (Auto) 11.5 H (2-11) % Lymph # (Auto) 1.1 L (1.2-4.9) X10*3/uL Abs Immat Gran (auto) 0.06 H (0.00-0.03) X10*3/uL ESR (0-15) MM/HR Sodium (135-145) mmol/L Anion Gap 11 L (12-20) BUN 17 H (9-16) mg/dL POC Glucose 243 H (60-115) mg/dL Random Glucose 260 H (60-115) mg/dL Calcium 8.3 L D (8.4-10.2) mg/dL C-Reactive Protein (< or = 0.50) mg/dL 05/06/21 Range/Units 11:22 WBC (4.8-10.8) X10*3/uL RBC (4.60-5.80) X10*6/uL Hgb (14.0-18.0) g/dl Hct (42.0-52.0) % Immature Gran % (Auto) (0.0-0.4) % Lymph % (Auto) (20-40) % [place] % (Auto) (2-11) % Lymph # (Auto) (1.2-4.9) X10*3/uL Abs Immat Gran (auto) (0.00-0.03) X10*3/uL ESR (0-15) MM/HR Sodium (135-145) mmol/L Anion Gap (12-20) BUN (9-16) mg/dL POC Glucose 271 H (60-115) mg/dL Random Glucose (60-115) mg/dL Calcium (8.4-10.2) mg/dL C-Reactive Protein (< or = 0.50) mg/dL Short CBC 05/05/21 05/06/21 Range/Units 16:25 06:33 WBC 6.7 4.7 L (4.8-10.8) X10*3/uL Hgb 12.5 L 10.8 L (14.0-18.0) g/dl Hct 35.6 L 31.4 L (42.0-52.0) % Plt Count 246 198 (160-400) X10*3/uL BMP 05/05/21 05/06/21 16:25 06:33 Sodium 134 L 138 Potassium 4.8 4.2 Chloride 99 106 Carbon Dioxide 28 25 BUN 22 H 17 H Creatinine 1.36 1.00 Calcium 8.9 8.3 L D All other labs normal. Assessment and Plan (1) Diabetic foot infection: Status: Acute He has a diabetic toe on the right along with what appears to be osteomyelitis. I explained to him that with the way this looks, it is unlikely to resolve with antibiotic treatment. I explained to him that chances of resolution of the infection will be much better with amputation of the 5th toe. I explained to him the technique of this procedure. I reviewed the risks, benefits, and alternatives. He wants to wait for imaging study with an MRI which he says is pending. He seems reluctant to go ahead with amputation at this time but I will follow along while he is in the hospital. He otherwise looks hemodynamically stable and not septic looking. I emphasized to him the need for good blood sugar control down the line. Procedures Date of Service Date of Service: 05/06/21
--- NOTE | 2021-05-06 15:09 | MHC.CM.PN ---
CM RECEIVED MESSAGE FROM [facility]IA [employer] THAT THEY ARE WILLING TO ACCEPT PT AND REQUEST IV ABX ORDERS BE FAXED TO [facility] [phone] PRIOR TO D/C. CM ALSO RECEIVED MESSAGE FROM [facility] AND REPORT PT IS 100% COVERED AND WILL CONTACT PT TO COORDINATE TIME FOR TEACH.
[2021-05-06 15:43] LABS: Glucose, Whole Blood 302 mg/dL (60-115)
--- NOTE | 2021-05-06 16:09 | P.CNID_ITS ---
History of Present Illness Data of Consult Service Date: 05/06/21 Requesting physician: Myles Shelley Primary Care Provider: Laura Lorenz NP HPI Reason for consult: right foot infection He presents with right foot fifth toe infection concern. He has had one month of increased discomfort there He has osteomyelitis seen on scan. I had seen him in 2017 for left foot infection and had given him IV Vancomycin for six weeks. He has not had problem with left foot Review of Systems Review of Systems: Yes all other systems are reviewed and are negative [facility] Past Medical History Medical History (Updated 05/18/21 @ 00:02 by Stefano Ayon) Diabetes mellitus, type 2 History of amputation of toe Osteomyelitis Family History Family History Mother Hypertension Father Diabetes Family history: reviewed and not pertinent Social History Social History Household Members: Significant Other Housing: Apartment Do you presently have visiting nurse or other home services: No Patient Tobacco Use Status: Never used Tobacco service: No Current occupational status: employed Meds Allergies Allergy/AdvReac Type Severity Reaction Status Date / Time piperacillin [From ZOSYN] Allergy Unknown SWELLING Verified 05/05/21 15:05 tazobactam [From ZOSYN] Allergy Unknown SWELLING Verified 05/05/21 15:05 Active Medications: Current Medications Acetaminophen (Acetaminophen 325 Mg Tablet) 650 mg PO Q6H PRN PRN Reason: Pain, Mild (Pain Scale 1-3) Aspirin (Aspirin 81 Mg Tab.Chew) 81 mg PO DAILY [facility] Last Admin: 05/06/21 07:55 Dose: 81 mg Documented by: Atorvastatin Calcium (Atorvastatin Calcium 80 Mg Tablet) 80 mg PO BEDTIME [facility] Dextrose (Dextrose 50 % 25 Gm/50 Ml Syringe) 25 gm IVPUSH Q15M PRN; Protocol PRN Reason: per Hypoglycemia Standing Ord. Docusate Sodium (Docusate Sodium 100 Mg Capsule) 100 mg PO DAILY PRN PRN Reason: Constipation Glucose (Glucose Gel 15 Gm Gel..Gram.) 15 gm PO Q15M PRN; Protocol PRN Reason: per Hypoglycemia Standing Ord. Cefepime HCl 2 gm/ Sodium (Chloride) 50 mls @ 100 mls/hr IV Q8H [facility] Last Infusion: 05/06/21 13:04 Dose: Infused Documented by: Vancomycin HCl 1,000 mg/ (Sodium Chloride) 270 mls @ 270 mls/hr IV Q12H [facility] Cefazolin Sodium/Dextrose (Ancef) 2 gm in 50 mls @ 100 mls/hr IV PREOP ONE Stop: 05/07/21 13:50 Insulin Glargine (Insulin Glargine,Hum.Rec.Anlog 100 Unit/Ml 10 Ml Vial) 40 unit SUBCUT BEDTIME [facility] Insulin Human Lispro (Insulin Lispro 100 Unit/Ml 3 Ml Vial) 0 unit SUBCUT QIDACHS [facility]; Protocol Last Admin: 05/06/21 11:59 Dose: 6 unit Documented by: Lisinopril (Lisinopril 20 Mg Tablet) 20 mg PO DAILY [facility]; Protocol Last Admin: 05/06/21 07:55 Dose: 20 mg Documented by: Ondansetron HCl (Ondansetron Hcl 4 Mg/2 Ml Vial) 4 mg IVPUSH Q8H PRN PRN Reason: Nausea and Vomiting Pharmacy Consult (Consult Rx Perform Med Rec) 1 each MISCELLANE ONCE PRN PRN Reason: Consult order Pharmacy Consult (Consult Rx Vancomycin Dosing) 1 each MISCELLANE DAILY PRN PRN Reason: Consult order Sodium Chloride (0.9 % Sodium Chloride Flush 3 Ml Syringe) [facility] Last Admin: 05/06/21 08:21 Dose: 3 ml Documented by: Home Medications Medication Instructions Recorded Confirmed Last Taken Type aspirin 81 mg chewable tablet 81 mg PO DAILY 05/05/21 05/05/21 05/05/21 History atorvastatin 80 mg tablet 80 mg PO DAILY 05/05/21 05/05/21 05/05/21 History Physical Exam Vital Signs: Vital Signs: Last Vital Signs Temp 97.7 F 05/06/21 15:16 Pulse 75 05/06/21 15:16 Resp 18 05/06/21 15:16 BP 139/74 05/06/21 15:16 Pulse Ox 94 05/06/21 15:16 BMI result Body Mass Index 45.4 Const: General: cooperative HENMT: Head: Yes normal to inspection Mouth: Normal oral and palatal mucosa present Resp: Effort & Inspection: normal respiratory effort Cardio: Rate: regular rate Rhythm: regular rhythm GI: Palpation (GI): Soft to palpation and nontender Extrem: Other: reddened area fifth toe/dark area,4/5 toe melded Results Labs CBC & Chem 7: 05/08/21 05:24 05/10/21 05:46 Labs: Short CBC 05/05/21 05/06/21 Range/Units 16:25 06:33 WBC 6.7 4.7 L (4.8-10.8) X10*3/uL Hgb 12.5 L 10.8 L (14.0-18.0) g/dl Hct 35.6 L 31.4 L (42.0-52.0) % Plt Count 246 198 (160-400) X10*3/uL BMP 05/05/21 05/06/21 16:25 06:33 Sodium 134 L 138 Potassium 4.8 4.2 Chloride 99 106 Carbon Dioxide 28 25 BUN 22 H 17 H Creatinine 1.36 1.00 Calcium 8.9 8.3 L D Assessment and Plan (1) Diabetic foot infection: Status: Resolved (2) Osteomyelitis: Status: Resolved He has osteomyelitis foot He has received IV Vancomycin for six weeks in 2017 for enterococcus foot infection,right Plan Would give six weeks IV Vancomycin likely Surgery evaluation as needed debridement
[2021-05-06] MEDS: vancomycin HCL 1,000 MG in 0.9 % Sodium Chloride 250 ML 270 MG IV (17:28)
[2021-05-06 19:40] LABS: Glucose, Whole Blood 260 mg/dL (60-115)
[2021-05-06] MEDS: Insulin Glargine,Hum.rec.anlog 100 UNIT/ML 10 ML VIAL 40 UNIT SUBCUT (20:05)
[2021-05-06] MEDS: Atorvastatin Calcium 80 MG TABLET PO (20:05)
[2021-05-07] VITALS (11 sets, daily range): BP systolic 99–147; BP diastolic 56–84; PULSE 62–92; RESP 16–18; TEMP 36.1–37.2; O2SAT 93–98
[2021-05-07 04:31] LABS: Creatinine Clr Calc Pharmacy 117.3; Estimated Glomerular Filt Rate > 60
[2021-05-07 04:39] LABS: Vancomycin Trough 13.4 mcg/mL (10.0-20.0)
[2021-05-07] MEDS: cefEPime HCl 2 GM in 0.9 % Sodium Chloride 50 ML IV (04:54)
[2021-05-07] MEDS: vancomycin HCL 1,000 MG in 0.9 % Sodium Chloride 250 ML 270 MG IV ×2 (05:30→17:19)
--- NOTE | 2021-05-07 06:43 | HE.PHANOTE ---
VANCOMYCIN DOSING ADDENDUM BASED ON TROUGH OF 13.4 ON 05/07 AUC OF 458. DOSE STAYING AT [id number]. NEXT TROUGH AT 05/08 @ 1600
[2021-05-07 07:36] LABS: Glucose, Whole Blood 178 mg/dL (60-115)
[2021-05-07] MEDS: lisinopriL 20 MG TABLET PO (08:11)
[2021-05-07] MEDS: 0.9 % Sodium Chloride Flush 3 ML SYRINGE IVFLUSH ×3 (08:12→20:49)
--- NOTE | 2021-05-07 09:25 | P.PNIM_ITS ---
Subjective Subjective Date of Service: 05/07/21 Interval History: complaining of right 5th toe pain with ambulation, denies fever chills no other acute issues overnight is NPO for 5th toe amputation scheduled for this afternoon. Review of Systems Review of Systems: Yes all other systems are reviewed and are negative Physical Exam Vital Signs: Vital Signs: Last Vital Signs Temp 98.1 F 05/07/21 08:00 Pulse 78 05/07/21 08:00 Resp 17 05/07/21 08:00 BP 137/84 05/07/21 08:00 Pulse Ox 96 05/07/21 08:00 BMI result Body Mass Index 45.4 Const: Other: General ? Awake alert resting in bed, no acute distress.? Neck? no JVD. CVS? regular rate rhythm, Respiratory lungs clear to auscultation, no respiratory distress. Gastrointestinal abdomen soft, nontender, bowel sounds audible Extremities no edema, good peripheral pulses right foot? 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 Skin no rash Objective Data Active Medications Acetaminophen (Acetaminophen 325 Mg Tablet) 650 mg PO Q6H PRN PRN Reason: Pain, Mild (Pain Scale 1-3) Aspirin (Aspirin 81 Mg Tab.Chew) 81 mg PO DAILY [facility] Last Admin: 05/07/21 08:12 Dose: Not Given Documented by: NALLELY Non-Admin Reason: hold for surgery Atorvastatin Calcium (Atorvastatin Calcium 80 Mg Tablet) 80 mg PO BEDTIME [facility] Last Admin: 05/06/21 20:05 Dose: 80 mg Documented by: NICOLE Dextrose (Dextrose 50 % 25 Gm/50 Ml Syringe) 25 gm IVPUSH Q15M PRN; Protocol PRN Reason: per Hypoglycemia Standing Ord. Docusate Sodium (Docusate Sodium 100 Mg Capsule) 100 mg PO DAILY PRN PRN Reason: Constipation Glucose (Glucose Gel 15 Gm Gel..Gram.) 15 gm PO Q15M PRN; Protocol PRN Reason: per Hypoglycemia Standing Ord. Cefepime HCl 2 gm/ Sodium (Chloride) 50 mls @ 100 mls/hr IV Q8H [facility] Last Infusion: 05/07/21 05:31 Dose: 0 mls/hr Documented by: NICOLE Vancomycin HCl 1,000 mg/ (Sodium Chloride) 270 mls @ 270 mls/hr IV Q12H [facility] Last Infusion: 05/07/21 06:35 Dose: 0 mls/hr Documented by: NICOLE Cefazolin Sodium/Dextrose (Ancef) 2 gm in 50 mls @ 100 mls/hr IV PREOP ONE Stop: 05/07/21 13:50 Insulin Glargine (Insulin Glargine,Hum.Rec.Anlog 100 Unit/Ml 10 Ml Vial) 40 un it SUBCUT BEDTIME [facility] Last Admin: 05/06/21 20:05 Dose: 40 unit Documented by: NICOLE Insulin Human Lispro (Insulin Lispro 100 Unit/Ml 3 Ml Vial) 0 unit SUBCUT QIDACHS [facility]; Protocol Last Admin: 05/07/21 08:12 Dose: Not Given Documented by: NALLELY Non-Admin Reason: NPO Lisinopril (Lisinopril 20 Mg Tablet) 20 mg PO DAILY [facility]; Protocol Last Admin: 05/07/21 08:11 Dose: 20 mg Documented by: NALLELY Ondansetron HCl (Ondansetron Hcl 4 Mg/2 Ml Vial) 4 mg IVPUSH Q8H PRN PRN Reason: Nausea and Vomiting Pharmacy Consult (Consult Rx Perform Med Rec) 1 each MISCELLANE ONCE PRN PRN Reason: Consult order Pharmacy Consult (Consult Rx Vancomycin Dosing) 1 each MISCELLANE DAILY PRN PRN Reason: Consult order Sodium Chloride (0.9 % Sodium Chloride Flush 3 Ml Syringe) 3 ml IVFLUSH QSHIFT [facility] Last Admin: 05/07/21 08:12 Dose: 3 ml Documented by: NALLELY Labs CBC & Chem 7: 05/06/21 06:33 05/07/21 04:12 Labs: Laboratory Results - last 24 hr 05/06/21 05/06/21 05/06/21 11:22 15:40 19:31 Estim Creat Clear Calc Estimated GFR POC Glucose 271 H 302 H 260 H Vancomycin Trough 05/07/21 05/07/21 05/07/21 04:12 04:12 07:20 Estim Creat Clear Calc 117.3 Estimated GFR > 60 POC Glucose 178 H Vancomycin Trough 13.4 Microbiology Microbiology Results: Microbiology 05/05/21 18:31 Blood Culture - Preliminary Blood - Venous No growth after 24 hours. 05/05/21 17:54 Blood Culture - Preliminary Blood - Venous No growth after 24 hours. Assessment and Plan (1) Hyperglycemia: Status: Acute (2) Diabetic foot infection: Status: Acute (3) Osteomyelitis: Status: Acute Plan 45-year-old male with diabetes noncompliant with his insulin presents to the hospital with complaints of non-healing foot wound #? Acute Diabetic wound right 5th toe distal phalanx with osteomyelitis ESR and CRP elevated, x-ray of the foot shows osteomyelitis distal phalanx right 5th toe failed outpatient antibiotic treatment, on IV vancomycin and cefepime day 2 will DC IV cefepime, continue IV vanco and discontinue antibiotics after surgery scheduled for 5th toe amputation today ? blood cultures x2 negative, no evidence of sepsis # ? hyperglycemia with history of diabetes mellitus on insulin ? noncompliance with insulin, blood sugars in 400s on arrival currently blood sugars improved to 200 range hemoglobin A1c 14 ? continue Lantus 40 units, increase sliding scale insulin, continue diabetic diet # morbid obesity weight reduction low-calorie diet recommended, obesity contributing to poor blood sugar control # hypertension on lisinopril ? ?DVT prophylaxis:? SCDs in anticipation of possible surgical intervention Quality Stroke Does the patient have a stroke diagnosis?: No VTE Prior VTE?: No VTE Risk Level:: Medical - moderate - high VTE Device Contraindication: Treatment Not Indicated VTE Drug Contraindication: N/A - Med Ordered
[2021-05-07 11:22] LABS: Glucose, Whole Blood 198 mg/dL (60-115)
--- NOTE | 2021-05-07 11:29 | MHC.CM.PN ---
EMR REVIEWED, PT HAVING R 5TH TOE AMP TODAY, BC'S NEG AFTER 1ST 24HRS, [facility] AWARE, ANTIC POSSIBLE D/C TOMORROW, CM WILL CONT TO FOLLOW D/C NEEDS.
--- NOTE | 2021-05-07 13:01 | PM.EVENT ---
Event Note Date of Service: 05/07/21 Event Note: patient has stated that he wants to proceed with amputation. I had a long discussion with him about the technique of amputation of the 5th toe on the right side under anesthesia. I discussed the risks including but not limited to bleeding, infections, healing, phantom pain, persistent pain, inherent risks of anesthesia, as well as the benefits and alternatives he understands and has given consent
--- NOTE | 2021-05-07 13:22 | P.CONAN_ITS ---
HPI - Anesthesia Eval Consult details Narrative: 45 M for right fifth toe amputation secondary to osteomyelitis PMFSH Active Problems Active Problems: All Active Problems (Updated 05/06/21 @ 06:15 by Shayan Aparicio MD) Hyperglycemia (Acute) Diabetic foot infection (Acute) Osteomyelitis (Acute) Past Medical History Medical History Diabetes mellitus, type 2 History of amputation of toe Osteomyelitis Family History Family History Mother Hypertension Father Diabetes Family history of problems with anesthesia: No Surgical History History of Problems with Anesthesia: No Social History Social History Household Members: Significant Other Housing: Apartment Do you presently have visiting nurse or other home services: No Patient Tobacco Use Status: Never used Tobacco service: No Current occupational status: employed Meds Allergies Allergy/AdvReac Type Severity Reaction Status Date / Time piperacillin [From ZOSYN] Allergy Unknown SWELLING Verified 05/05/21 15:05 tazobactam [From ZOSYN] Allergy Unknown SWELLING Verified 05/05/21 15:05 Active Medications: Current Medications Acetaminophen (Acetaminophen 325 Mg Tablet) 650 mg PO Q6H PRN PRN Reason: Pain, Mild (Pain Scale 1-3) Aspirin (Aspirin 81 Mg Tab.Chew) 81 mg PO DAILY [facility] Last Admin: 05/07/21 08:12 Dose: Not Given Documented by: Atorvastatin Calcium (Atorvastatin Calcium 80 Mg Tablet) 80 mg PO BEDTIME [facility] Last Admin: 05/06/21 20:05 Dose: 80 mg Documented by: Dextrose (Dextrose 50 % 25 Gm/50 Ml Syringe) 25 gm IVPUSH Q15M PRN; Protocol PRN Reason: per Hypoglycemia Standing Ord. Docusate Sodium (Docusate Sodium 100 Mg Capsule) 100 mg PO DAILY PRN PRN Reason: Constipation Glucose (Glucose Gel 15 Gm Gel..Gram.) 15 gm PO Q15M PRN; Protocol PRN Reason: per Hypoglycemia Standing Ord. Vancomycin HCl 1,000 mg/ (Sodium Chloride) 270 mls @ 270 mls/hr IV Q12H [facility] Last Infusion: 05/07/21 06:35 Dose: Infused Documented by: Cefazolin Sodium/Dextrose (Ancef) 2 gm in 50 mls @ 100 mls/hr IV PREOP ONE Stop: 05/07/21 13:50 Insulin Glargine (Insulin Glargine,Hum.Rec.Anlog 100 Unit/Ml 10 Ml Vial) 40 unit SUBCUT BEDTIME [facility] Last Admin: 05/06/21 20:05 Dose: 40 unit Documented by: Insulin Human Lispro (Insulin Lispro 100 Unit/Ml 3 Ml Vial) 0 unit SUBCUT QIDACHS [facility]; Protocol Last Admin: 05/07/21 11:38 Dose: Not Given Documented by: Lisinopril (Lisinopril 20 Mg Tablet) 20 mg PO DAILY [facility]; Protocol Last Admin: 05/07/21 08:11 Dose: 20 mg Documented by: Ondansetron HCl (Ondansetron Hcl 4 Mg/2 Ml Vial) 4 mg IVPUSH Q8H PRN PRN Reason: Nausea and Vomiting Pharmacy Consult (Consult Rx Perform Med Rec) 1 each MISCELLANE ONCE PRN PRN Reason: Consult order Pharmacy Consult (Consult Rx Vancomycin Dosing) 1 each MISCELLANE DAILY PRN PRN Reason: Consult order Sodium Chloride (0.9 % Sodium Chloride Flush 3 Ml Syringe) 3 ml IVFLUSH QSHIFT [facility] Last Admin: 05/07/21 08:12 Dose: 3 ml Documented by: Home Medications Medication Instructions Recorded Confirmed Last Taken Type aspirin 81 mg chewable tablet 81 mg PO DAILY 05/05/21 05/05/21 05/05/21 History atorvastatin 80 mg tablet 80 mg PO DAILY 05/05/21 05/05/21 05/05/21 History insulin glargine 100 unit/mL (3 40 unit SUBCUT DAILY 05/05/21 05/05/21 Unknown History mL) subcutaneous pen (Lantus Solostar U-100 Insulin) insulin lispro 100 unit/mL 1 sliding scale dose SUBCUT TID 05/05/21 05/05/21 Unknown History subcutaneous pen (Humalog KwikPen (U-100) Insulin) lisinopril 20 mg tablet 20 mg PO DAILY 05/05/21 05/05/21 05/05/21 History Exam Exam Date and Time: May 07, 2021 1322 Height,Weight and Vital Signs: Height 5 ft 4 in Weight 120.202 kg Last Vital Signs Temp 97 F 05/07/21 11:44 Pulse 81 05/07/21 11:44 Resp 18 05/07/21 11:44 BP 147/84 H 05/07/21 11:44 Pulse Ox 94 05/07/21 11:44 Pertinent Lab Results Pertinent Lab Results: Laboratory Tests 05/05/21 05/05/21 05/05/21 16:25 16:25 17:43 WBC 6.7 RBC 3.99 L Hgb 12.5 L Hct 35.6 L MCV 89.2 MCH 31.3 MCHC 35.1 RDW 12.0 Plt Count 246 MPV 11.7 Immature Gran % (Auto) 1.4 H Neut % (Auto) 70.7 Lymph % (Auto) 17.9 L [place] % (Auto) 8.9 Eos % (Auto) 0.6 Baso % (Auto) 0.5 Lymph # (Auto) 1.2 [place] # (Auto) 0.6 Eos # (Auto) 0.0 Baso # (Auto) 0.0 Abs Immat Gran (auto) 0.09 H Absolute Neuts (auto) 4.7 Absolute Nucleated RBC 0.000 Nucleated RBC % (auto) 0.0 ESR Sodium 134 L Potassium 4.8 Chloride 99 Carbon Dioxide 28 Anion Gap 12 BUN 22 H Creatinine 1.36 Estim Creat Clear Calc 82.8 Estimated GFR 57 POC Glucose Random Glucose 400 H* Estimat Average Glucose Hemoglobin A1c % Lactic Acid Calcium 8.9 C-Reactive Protein Vancomycin Trough Acetone, Qual COVID-19 ([facility]) Negative COVID-[employer] Com See Note 05/05/21 05/05/21 05/05/21 17:54 17:54 17:55 WBC RBC Hgb Hct MCV MCH MCHC RDW Plt Count MPV Immature Gran % (Auto) Neut % (Auto) Lymph % (Auto) [place] % (Auto) Eos % (Auto) Baso % (Auto) Lymph # (Auto) [place] # (Auto) Eos # (Auto) Baso # (Auto) Abs Immat Gran (auto) Absolute Neuts (auto) Absolute Nucleated RBC Nucleated RBC % (auto) ESR 86 H Sodium Potassium Chloride Carbon Dioxide Anion Gap BUN Creatinine Estim Creat Clear Calc Estimated GFR POC Glucose Random Glucose Estimat Average Glucose Hemoglobin A1c % Lactic Acid 1.1 Calcium C-Reactive Protein 2.86 H Vancomycin Trough Acetone, Qual Negative COVID-19 ([facility]) COVID-19 Clin Com 05/05/21 05/05/21 05/06/21 20:50 21:32 03:30 WBC RBC Hgb Hct MCV MCH MCHC RDW Plt Count MPV Immature Gran % (Auto) Neut % (Auto) Lymph % (Auto) [place] % (Auto) Eos % (Auto) Baso % (Auto) Lymph # (Auto) [place] # (Auto) Eos # (Auto) Baso # (Auto) Abs Immat Gran (auto) Absolute Neuts (auto) Absolute Nucleated RBC Nucleated RBC % (auto) ESR Sodium Potassium Chloride Carbon Dioxide Anion Gap BUN Creatinine Estim Creat Clear Calc Estimated GFR POC Glucose 239 H 270 H Random Glucose Estimat Average Glucose TNP Hemoglobin A1c % > 14.0 Lactic Acid Calcium C-Reactive Protein Vancomycin Trough Acetone, Qual COVID-19 ([facility]) COVID-19 [facility] 05/06/21 05/06/21 05/06/21 06:33 06:33 07:20 WBC 4.7 L RBC 3.46 L Hgb 10.8 L Hct 31.4 L MCV 90.8 MCH 31.2 MCHC 34.4 RDW 11.9 Plt Count 198 MPV 11.7 Immature Gran % (Auto) 1.3 H Neut % (Auto) 61.6 Lymph % (Auto) 23.5 [place] % (Auto) 11.5 H Eos % (Auto) 1.5 Baso % (Auto) 0.6 Lymph # (Auto) 1.1 L [place] # (Auto) 0.5 Eos # (Auto) 0.1 Baso # (Auto) 0.0 Abs Immat Gran (auto) 0.06 H Absolute Neuts (auto) 2.9 Absolute Nucleated RBC 0.000 Nucleated RBC % (auto) 0.0 ESR Sodium 138 Potassium 4.2 Chloride 106 Carbon Dioxide 25 Anion Gap 11 L BUN 17 H Creatinine 1.00 Estim Creat Clear Calc 112.6 Estimated GFR > 60 POC Glucose 243 H Random Glucose 260 H Estimat Average Glucose Hemoglobin A1c % Lactic Acid Calcium 8.3 L D C-Reactive Protein Vancomycin Trough Acetone, Qual COVID-19 ([facility]) COVID-19 [employer] [facility] 05/06/21 05/06/21 05/06/21 11:22 15:40 19:31 WBC RBC Hgb Hct MCV MCH MCHC RDW Plt Count MPV Immature Gran % (Auto) Neut % (Auto) Lymph % (Auto) [place] % (Auto) Eos % (Auto) Baso % (Auto) Lymph # (Auto) [place] # (Auto) Eos # (Auto) Baso # (Auto) Abs Immat Gran (auto) Absolute Neuts (auto) Absolute Nucleated RBC Nucleated RBC % (auto) ESR Sodium Potassium Chloride Carbon Dioxide Anion Gap BUN Creatinine Estim Creat Clear Calc Estimated GFR POC Glucose 271 H 302 H 260 H Random Glucose Estimat Average Glucose Hemoglobin A1c % Lactic Acid Calcium C-Reactive Protein Vancomycin Trough Acetone, Qual COVID-19 ([facility]) [employer] 05/07/21 05/07/21 05/07/21 04:12 04:12 07:20 WBC RBC Hgb Hct MCV MCH MCHC RDW Plt Count MPV Immature Gran % (Auto) Neut % (Auto) Lymph % (Auto) [place] % (Auto) Eos % (Auto) Baso % (Auto) Lymph # (Auto) [place] # (Auto) Eos # (Auto) Baso # (Auto) Abs Immat Gran (auto) Absolute Neuts (auto) Absolute Nucleated RBC Nucleated RBC % (auto) ESR Sodium Potassium Chloride Carbon Dioxide Anion Gap BUN Creatinine 0.96 Estim Creat Clear Calc 117.3 Estimated GFR > 60 POC Glucose 178 H Random Glucose Estimat Average Glucose Hemoglobin A1c % Lactic Acid Calcium C-Reactive Protein Vancomycin Trough 13.4 Acetone, Qual COVID-19 ([facility]) [employer] 05/07/21 11:17 WBC RBC Hgb Hct MCV MCH MCHC RDW Plt Count MPV Immature Gran % (Auto) Neut % (Auto) Lymph % (Auto) [place] % (Auto) Eos % (Auto) Baso % (Auto) Lymph # (Auto) [place] # (Auto) Eos # (Auto) Baso # (Auto) Abs Immat Gran (auto) Absolute Neuts (auto) Absolute Nucleated RBC Nucleated RBC % (auto) ESR Sodium Potassium Chloride Carbon Dioxide Anion Gap BUN Creatinine Estim Creat Clear Calc Estimated GFR POC Glucose 198 H Random Glucose Estimat Average Glucose Hemoglobin A1c % Lactic Acid Calcium C-Reactive Protein Vancomycin Trough Acetone, Qual COVID-19 ([facility]) COVID-[employer] Airway Mallampati Class: II TM Dist: >3cm Neck ROM: Full Loose/Missing/Broken Teeth: Yes (Chipped teeth and extremly poor dentation ) Heart: rrr Lungs: distant breath sounds Assessment and Plan Assessment Anesthesia Assessment: Anesthesia Plan Discussed and Chart Reviewed Final Anesthetic Review Family History of Problems with Anesthesia: No History of Problems with Anesthesia: No NPO: Yes ASA Class: III Final Preanesthetic Review: Meds/Allgs Chart Reviewed, Consent Obtained/Reviewed and Anes Risks/Benef Reviewed Patient Risk: High Procedure Risk: Intermediate Anesthetic Plan Anesthetic Plan: GA Disposition: Inp. Admit - Standard Bed
--- NOTE | 2021-05-07 14:13 | P.OP_ITS ---
Operative Note Operative Note Date of Service: 05/07/21 Narrative: Preop diagnosis: Osteomyelitis of the 5th toe right side Postop diagnosis: The same Procedure: ray amputation, 5th toe right Surgeon: Earle Abarca MD assistant field hockey coach: BAKARI Castillo The patient is a 45-year-old diabetic male with a nonhealing wound with drainage of the 5th toe. His x-ray was consistent with osteomyelitis of distal phalanx . He does have a history of amputation of the 3rd toe for similar problem. He decided that he did not want long-term IV antibiotics and wanted to proceed with amputation. I explained to him the technique of dictation. I reviewed the risks including but not limited to bleeding, infections, poor healing, as well as the benefits and alternatives. He had given consent . He was brought to the operating room and placed supine on table under general anesthesia via laryngeal mask airway. The right foot was prepped draped usual sterile fashion.A surgical time-out was done. The patient received cefazolin 2 g IV preoperatively. I infiltrated the planned line of incision around the base of the 5th toe extending laterally and proximally with lidocaine 1%. I made the incision using blade 15. This was carried down through the full-thickness of the skin subcutaneous fat electrocautery until I reached the soft tissues of the 5th toe. Use the may scissors to divide the soft tissues including the tendons. I had to cauterize oozing areas including the vessels. I carried down the dissection all the 5th metatarsal. I chose this as a point of amputation to decrease chances of persistent osteomyelitis. I used a periosteal elevator to define the distal metatarsal. I then used a Bone cutter to divide the distal metatarsal to the metatarsal head. The specimen was then delivered.I cauterized oozing areas. I irrigated copiously. Once hemostasis was ensured, I proceeded to close the incision with full-thickness nylon 2-0 interrupted sutures. Thick dressings were applied and the foot was wrapped in Kerlix roll. He tolerated the procedure well. There were no complications noted. He was extubated without difficulty and transferred to the recovery room with stable vital signs.
--- NOTE | 2021-05-07 14:25 | P.BOP_ITS ---
Brief Operative Note Date of Service: 05/07/21 Pre-op diagnosis: osteomyelitis right fifth toe Post-op diagnosis: same Procedure: right fifth toe amputation Surgeon: GIANA CHIU MD Anesthesia: GLMA Was an Decorating Consultant used for this Procedure?: Yes Decorating Consultant: Steph Castillo Estimated blood loss (mL): 10 Pathology: other (RIGHT FIFTH TOE) Condition: stable Disposition: PACU
[2021-05-07 16:46] LABS: Vancomycin Trough 15.3 mcg/mL (10.0-20.0)
[2021-05-07 16:46] LABS: Glucose, Whole Blood 201 mg/dL (60-115)
[2021-05-07] MEDS: Insulin Lispro 100 UNIT/ML 3 ML VIAL SUBCUT ×2 (16:53→20:48)
[2021-05-07] MEDS: ondansetron HCL 4 MG/2 ML VIAL IVPUSH (17:31)
[2021-05-07 20:20] LABS: Glucose, Whole Blood 194 mg/dL (60-115)
[2021-05-07] MEDS: Atorvastatin Calcium 80 MG TABLET PO (20:48)
[2021-05-07] MEDS: Insulin Glargine,Hum.rec.anlog 100 UNIT/ML 10 ML VIAL 40 UNIT SUBCUT (20:48)
[2021-05-07] MEDS: Prochlorperazine Edisylate 10 MG/2 ML VIAL 5 MG IVPUSH (22:29)
[2021-05-08 03:34] VITALS: BP 101/54; PULSE 70; RESP 15; TEMP 36.3; O2SAT 93
[2021-05-08] MEDS: vancomycin HCL 1,000 MG in 0.9 % Sodium Chloride 250 ML 270 MG IV ×2 (05:30→17:58)
[2021-05-08 06:14] LABS: Hematocrit 31.2 % (42.0-52.0); Hemoglobin 10.3 g/dl (14.0-18.0); Mean Corpuscular Hemoglobin 30.7 pg (27.0-33.0); Mean Corpuscular Volume 92.9 fL (80.0-98.0); Platelet Count 209 X10*3/uL (160-400); Red Blood Count 3.36 X10*6/uL (4.60-5.80); White Blood Count 6.2 X10*3/uL (4.8-10.8)
[2021-05-08 06:34] LABS: Anion Gap 10 (12-20); Blood Urea Nitrogen 17 mg/dL (9-16); Calcium 8.7 mg/dL (8.4-10.2); Carbon Dioxide 26 mmol/L (22-29); Chloride 105 mmol/L (96-108); Creatinine Clr Calc Pharmacy 100.5; Estimated Glomerular Filt Rate > 60; Glucose Random 229 mg/dL (60-115); Potassium 4.2 mmol/L (3.3-5.1); Sodium 137 mmol/L (135-145)
--- NOTE | 2021-05-08 06:43 | HO.POSTANES ---
Post Anesthesia Evaluation Post Anesthesia Evaluation Vital Signs: Vital Signs Temp Pulse Resp BP Pulse Ox 05/08/21 03:34 97.4 F 70 15 101/54 L 93 05/07/21 23:15 97.6 F 69 16 109/57 L 93 05/07/21 19:34 97.4 F 62 18 113/56 L 93 Anesthesia: General Mental Status: Awake Pain Control: Satisfactory Nausea/Vomiting: None Hydration: Adequate Anesthesia-Related Issues: No Anes. Related Issues
[2021-05-08] MEDS: ondansetron HCL 4 MG/2 ML VIAL IVPUSH (07:17)
[2021-05-08] MEDS: Aspirin 81 MG TAB.CHEW PO (07:17)
[2021-05-08] MEDS: oxyCODONE HCl Immed Release 5 MG TABLET PO ×2 (07:18→15:48)
[2021-05-08] MEDS: 0.9 % Sodium Chloride Flush 3 ML SYRINGE IVFLUSH ×3 (07:18→21:21)
[2021-05-08] MEDS: lisinopriL 20 MG TABLET PO (07:18)
[2021-05-08 07:19] VITALS: BP 133/71; PULSE 78; RESP 17; TEMP 36.9; O2SAT 93
[2021-05-08 07:19] LABS: Glucose, Whole Blood 189 mg/dL (60-115)
[2021-05-08] MEDS: Insulin Lispro 100 UNIT/ML 3 ML VIAL SUBCUT ×4 (07:48→21:20)
--- NOTE | 2021-05-08 09:16 | MHC.CM.PN ---
EMR REVIEWED, PT DAY ONE P/O, ANTIC PT WILL D/C TOMORROW 05/09 W/[facility], START OF CARE WILL BE WEDNESDAY 05/10 PER [facility], PT WILL ARRANGE TRANSPORT.
--- NOTE | 2021-05-08 09:42 | P.PNGS_ITS ---
Subjective Subjective Date of Service: 05/08/21 <Steph Castillo PA-C - Last Filed: 05/08/21 09:46> 05/09/21 <Earle Abarca MD - Last Filed: 05/09/21 09:08> Interval history: Had nausea and vomiting yesterday evening into this morning. Feels a little better this morning. Pain at amputation site but comfortable with analgesics. Ambulating on heel. <Steph Castillo PA-C - Last Filed: 05/08/21 09:46> Physical Exam Vital Signs: Vital Signs: Last Vital Signs Temp 98.5 F 05/08/21 07:19 Pulse 78 05/08/21 07:19 Resp 17 05/08/21 07:19 BP 133/71 05/08/21 07:19 Pulse Ox 93 05/08/21 07:19 BMI result Body Mass Index 45.4 <EDUARDO Ko Last Filed: 05/08/21 09:46> Const: General: comfortable, no acute distress and alert <Steph Castillo PA-C - Last Filed: 05/08/21 09:46> Orientation/consciousness: patient oriented x3 <Steph Castillo PA-C - Last Filed: 05/08/21 09:46> Resp: Effort & Inspection: normal respiratory effort <EDUARDO Ko Last Filed: 05/08/21 09:46> GI: Inspection: No distended <Steph Castillo PA-C - Last Filed: 05/08/21 09:46> Palpation (GI): Soft to palpation and nontender <Steph Castillo PA-C - Last Filed: 05/08/21 09:46> Skin: General skin exam: no rashes or lesions noted <EDUARDO Ko Last Filed: 05/08/21 09:46> Neuro: General: patient oriented x3 <EDUARDO Ko Last Filed: 05/08/21 09:46> Extrem: Other: right fifth toe amputation site clean with some edema, sutures intact, some sanguineous drainage noted; plantar ulcer clean <EDUARDO Ko Last Filed: 05/08/21 09:46> Objective Data Active Medications Acetaminophen (Acetaminophen 325 Mg Tablet) 650 mg PO Q6H PRN PRN Reason: Pain, Mild (Pain Scale 1-3) Aspirin (Aspirin 81 Mg Tab.Chew) 81 mg PO DAILY [facility] Last Admin: 05/08/21 07:17 Dose: 81 mg Documented by: NALLELY Atorvastatin Calcium (Atorvastatin Calcium 80 Mg Tablet) 80 mg PO BEDTIME [facility] Last Admin: 05/07/21 20:48 Dose: 80 mg Documented by: NICOLE Dextrose (Dextrose 50 % 25 Gm/50 Ml Syringe) 25 gm IVPUSH Q15M PRN; Protocol PRN Reason: per Hypoglycemia Standing Ord. Docusate Sodium (Docusate Sodium 100 Mg Capsule) 100 mg PO DAILY PRN PRN Reason: Constipation Glucose (Glucose Gel 15 Gm Gel..Gram.) 15 gm PO Q15M PRN; Protocol PRN Reason: per Hypoglycemia Standing Ord. Vancomycin HCl 1,000 mg/ (Sodium Chloride) 270 mls @ 270 mls/hr IV Q12H [facility] Last Infusion: 05/08/21 07:01 Dose: 0 mls/hr Documented by: NALLELY Insulin Glargine (Insulin Glargine,Hum.Rec.Anlog 100 Unit/Ml 10 Ml Vial) 40 unit SUBCUT BEDTIME [facility] Last Admin: 05/07/21 20:48 Dose: 40 unit Documented by: NICOLE Insulin Human Lispro (Insulin Lispro 100 Unit/Ml 3 Ml Vial) 0 unit SUBCUT QIDACHS [facility]; Protocol Last Admin: 05/08/21 07:48 Dose: 2 unit Documented by: NALLELY Lisinopril (Lisinopril 20 Mg Tablet) 20 mg PO DAILY [facility]; Protocol Last Admin: 05/08/21 07:18 Dose: 20 mg Documented by: NALLELY Morphine Sulfate (Morphine Sulfate 4 Mg/Ml Cartridge) 3 mg IVPUSH Q3H PRN; Protocol PRN Reason: Pain, Severe (Pain Scale 7-10) Ondansetron HCl (Ondansetron Hcl 4 Mg/2 Ml Vial) 4 mg IVPUSH Q8H PRN PRN Reason: Nausea and Vomiting Last Admin: 05/08/21 07:17 Dose: 4 mg Documented by: HO.DABA Oxycodone HCl (Oxycodone Hcl Immed Release 5 Mg Tablet) 5 mg PO Q4H PRN PRN Reason: Pain, Moderate (Pain Scale 4-6 Last Admin: 05/08/21 07:18 Dose: 5 mg Documented by: NALLELY Pharmacy Consult (Consult Rx Perform Med Rec) 1 each MISCELLANE ONCE PRN PRN Reason: Consult order Pharmacy Consult (Consult Rx Vancomycin Dosing) 1 each MISCELLANE DAILY PRN PRN Reason: Consult order Sodium Chloride (0.9 % Sodium Chloride Flush 3 Ml Syringe) 3 ml IVFLUSH QSHIFT [facility] Last Admin: 05/08/21 07:18 Dose: 3 ml Documented by: NALLELY <Steph Castillo PA-C - Last Filed: 05/08/21 09:46> Labs CBC & Chem 7: : 05/08/21 05:24 05/09/21 04:10 <Steph Castillo PA-C - Last Filed: 05/08/21 09:46> Labs: Laboratory Results - last 24 hr 05/07/21 05/07/21 05/07/21 11:17 15:46 16:36 MCV MCH MCHC RDW Plt Count MPV Absolute Nucleated RBC Nucleated RBC % (auto) Anion Gap Estim Creat Clear Calc Estimated GFR POC Glucose 198 H 201 H Random Glucose Calcium Vancomycin Trough 15.3 05/07/21 05/08/21 05/08/21 19:38 05:24 05:24 MCV 92.9 MCH 30.7 MCHC 33.0 RDW 12.0 Plt Count 209 MPV 12.0 Absolute Nucleated RBC 0.000 Nucleated RBC % (auto) 0.0 Anion Gap 10 L Estim Creat Clear Calc 100.5 Estimated GFR > 60 POC Glucose 194 H Random Glucose 229 H Calcium 8.7 Vancomycin Trough 05/08/21 07:14 MCV MCH MCHC RDW Plt Count MPV Absolute Nucleated RBC Nucleated RBC % (auto) Anion Gap Estim Creat Clear Calc Estimated GFR POC Glucose 189 H Random Glucose Calcium Vancomycin Trough <Steph Castillo PA-C - Last Filed: 05/08/21 09:46> Microbiology Microbiology Results: Microbiology 05/05/21 18:31 Blood Culture - Preliminary Blood - Venous No growth after 48 hours. 05/05/21 17:54 Blood Culture - Preliminary Blood - Venous No growth after 48 hours. <Steph Castillo PA-C - Last Filed: 05/08/21 09:46> Procedures Date of Service Date of Service: 05/08/21 <Steph Castillo PA-C - Last Filed: 05/08/21 09:46> Progress Note: A&P Assessment and plan (1) Osteomyelitis: Status: Acute <Steph Castillo PA-C - Last Filed: 05/08/21 09:46> (2) Diabetic foot infection: Status: Acute <Steph Castillo PA-C - Last Filed: 05/08/21 09:46> Assessment and Plan: had nausea postop feels better surgical site clean, with some edema dressings changed pain control seen and examined independently - agree with BAKARI Castillo <Earle Abarca MD - Last Filed: 05/09/21 09:08> Plan 45 year old admitted with osteomyelitis right fifth toe now POD #1 s/p ray amputation, right fifth toe. Had difficulty with nausea post op. Feeling a little better. Phenergan added. Amputation site clean, edematous. Continue daily dressing changes with xeroform, fluffs and kerlix wrap. Keep R foot elevated, IV abx. <Steph Castillo PA-C - Last Filed: 05/08/21 09:46> Fall Risk Details Current Medications: Current Medications Acetaminophen (Acetaminophen 325 Mg Tablet) 650 mg PO Q6H PRN PRN Reason: Pain, Mild (Pain Scale 1-3) Aspirin (Aspirin 81 Mg Tab.Chew) 81 mg PO DAILY [facility] Last Admin: 05/08/21 07:17 Dose: 81 mg Documented by: Atorvastatin Calcium (Atorvastatin Calcium 80 Mg Tablet) 80 mg PO BEDTIME [facility] Last Admin: 05/07/21 20:48 Dose: 80 mg Documented by: Dextrose (Dextrose 50 % 25 Gm/50 Ml Syringe) 25 gm IVPUSH Q15M PRN; Protocol PRN Reason: per Hypoglycemia Standing Ord. Docusate Sodium (Docusate Sodium 100 Mg Capsule) 100 mg PO DAILY PRN PRN Reason: Constipation Glucose (Glucose Gel 15 Gm Gel..Gram.) 15 gm PO Q15M PRN; Protocol PRN Reason: per Hypoglycemia Standing Ord. Vancomycin HCl 1,000 mg/ (Sodium Chloride) 270 mls @ 270 mls/hr IV Q12H [facility] Last Infusion: 05/08/21 07:01 Dose: Infused Documented by: Insulin Glargine (Insulin Glargine,Hum.Rec.Anlog 100 Unit/Ml 10 Ml Vial) 40 unit SUBCUT BEDTIME [facility] Last Admin: 05/07/21 20:48 Dose: 40 unit Documented by: Insulin Human Lispro (Insulin Lispro 100 Unit/Ml 3 Ml Vial) 0 unit SUBCUT QIDA CHS [facility]; Protocol Last Admin: 05/08/21 07:48 Dose: 2 unit Documented by: Lisinopril (Lisinopril 20 Mg Tablet) 20 mg PO DAILY [facility]; Protocol Last Admin: 05/08/21 07:18 Dose: 20 mg Documented by: Morphine Sulfate (Morphine Sulfate 4 Mg/Ml Cartridge) 3 mg IVPUSH Q3H PRN; Protocol PRN Reason: Pain, Severe (Pain Scale 7-10) Ondansetron HCl (Ondansetron Hcl 4 Mg/2 Ml Vial) 4 mg IVPUSH Q8H PRN PRN Reason: Nausea and Vomiting Last Admin: 05/08/21 07:17 Dose: 4 mg Documented by: Oxycodone HCl (Oxycodone Hcl Immed Release 5 Mg Tablet) 5 mg PO Q4H PRN PRN Reason: Pain, Moderate (Pain Scale 4-6 Last Admin: 05/08/21 07:18 Dose: 5 mg Documented by: Pharmacy Consult (Consult Rx Perform Med Rec) 1 each MISCELLANE ONCE PRN PRN Reason: Consult order Pharmacy Consult (Consult Rx Vancomycin Dosing) 1 each MISCELLANE DAILY PRN PRN Reason: Consult order Sodium Chloride (0.9 % Sodium Chloride Flush 3 Ml Syringe) 3 ml IVFLUSH QSHIFT [facility] Last Admin: 05/08/21 07:18 Dose: 3 ml Documented by: <EDUARDO Ko Last Filed: 05/08/21 09:46> Time Spent With Patient Time: Total time spent is greater than 50% in coordination of care (as documented) at patient's floor/unit and/or counseling patient: <EDUARDO Ko Last Filed: 05/08/21 09:46> Time with patient: 15 - 24 minutes <EDUARDO Ko Last Filed: 05/08/21 09:46> Quality Stroke Does the patient have a stroke diagnosis?: No <Steph Castillo PA-C - Last Filed: 05/08/21 09:46> VTE Prior VTE?: No <Steph Castillo PA-C - Last Filed: 05/08/21 09:46> VTE Risk Level:: Medical - moderate - high <Steph Castillo PA-C - Last Filed: 05/08/21 09:46> VTE Device Contraindication: Treatment Not Indicated <Steph Castillo PA-C - Last Filed: 05/08/21 09:46> VTE Drug Contraindication: N/A - Med Ordered <Steph Castillo PA-C - Last Filed: 05/08/21 09:46>
--- NOTE | 2021-05-08 09:47 | P.PNIM_ITS ---
Subjective Subjective Date of Service: 05/08/21 Interval History: status post right 5th toe amputation yesterday,overnight had nausea and vomiting now resolved, offers no acute complaints today good pain control, denies fever, no chills, no chest pain, no shortness of breath blood sugars around 200. Review of Systems QUALITY REVIEWER no headache, no dizziness CVS no chest pain respiratory no cough, no sputum production Review of Systems: Yes all other systems are reviewed and are negative Physical Exam Vital Signs: Vital Signs: Last Vital Signs Temp 98.5 F 05/08/21 07:19 Pulse 78 05/08/21 07:19 Resp 17 05/08/21 07:19 BP 133/71 05/08/21 07:19 Pulse Ox 93 05/08/21 07:19 BMI result Body Mass Index 45.4 Const: Other: General ? Awake alert resting in bed, no acute distress.? Neck? no JVD. CVS? regular rate rhythm, Respiratory lungs clear to auscultation, no respiratory distress. Gastrointestinal abdomen soft, nontender, bowel sounds audible Extremities no edema, good peripheral pulses Right foot sutures in place some serosanguineous drainage noted mild surrounding erythema/ clean plantar ulcer Neuro nonfocal moving all 4 extremity speech clear. Skin no rash Objective Data Active Medications Acetaminophen (Acetaminophen 325 Mg Tablet) 650 mg PO Q6H PRN PRN Reason: Pain, Mild (Pain Scale 1-3) Aspirin (Aspirin 81 Mg Tab.Chew) 81 mg PO DAILY [facility] Last Admin: 05/08/21 07:17 Dose: 81 mg Documented by: NALLELY Atorvastatin Calcium (Atorvastatin Calcium 80 Mg Tablet) 80 mg PO BEDTIME [facility] Last Admin: 05/07/21 20:48 Dose: 80 mg Documented by: NICOLE Dextrose (Dextrose 50 % 25 Gm/50 Ml Syringe) 25 gm IVPUSH Q15M PRN; Protocol PRN Reason: per Hypoglycemia Standing Ord. Docusate Sodium (Docusate Sodium 100 Mg Capsule) 100 mg PO DAILY PRN PRN Reason: Constipation Glucose (Glucose Gel 15 Gm Gel..Gram.) 15 gm PO Q15M PRN; Protocol PRN Reason: per Hypoglycemia Standing Ord. Vancomycin HCl 1,000 mg/ (Sodium Chloride) 270 mls @ 270 mls/hr IV Q12H [facility] Last Infusion: 05/08/21 07:01 Dose: 0 mls/hr Documented by: NALLELY Promethazine HCl 12.5 mg/ (Sodium Chloride) 50.5 mls @ 202 mls/hr IV Q6H PRN PRN Reason: nausea/vomiting Insulin Glargine (Insulin Glargine,Hum.Rec.Anlog 100 Unit/Ml 10 Ml Vial) 40 unit SUBCUT BEDTIME [facility] Last Admin: 05/07/21 20:48 Dose: 40 unit Documented by: NICOLE Insulin Human Lispro (Insulin Lispro 100 Unit/Ml 3 Ml Vial) 0 unit SUBCUT QIDACHS [facility]; Protocol Last Admin: 05/08/21 07:48 Dose: 2 unit Documented by: NALLELY Lisinopril (Lisinopril 20 Mg Tablet) 20 mg PO DAILY [facility]; Protocol Last Admin: 05/08/21 07:18 Dose: 20 mg Documented by: NALLELY Morphine Sulfate (Morphine Sulfate 4 Mg/Ml Cartridge) 3 mg IVPUSH Q3H PRN; Protocol PRN Reason: Pain, Severe (Pain Scale 7-10) Ondansetron HCl (Ondansetron Hcl 4 Mg/2 Ml Vial) 4 mg IVPUSH Q8H PRN PRN Reason: Nausea and Vomiting Last Admin: 05/08/21 07:17 Dose: 4 mg Documented by: NALLELY Oxycodone HCl (Oxycodone Hcl Immed Release 5 Mg Tablet) 5 mg PO Q4H PRN PRN Reason: Pain, Moderate (Pain Scale 4-6 Last Admin: 05/08/21 07:18 Dose: 5 mg Documented by: NALLELY Pharmacy Consult (Consult Rx Perform Med Rec) 1 each MISCELLANE ONCE PRN PRN Reason: Consult order Pharmacy Consult (Consult Rx Vancomycin Dosing) 1 each MISCELLANE DAILY PRN PRN Reason: Consult order Sodium Chloride (0.9 % Sodium Chloride Flush 3 Ml Syringe) 3 ml IVFLUSH [facility] Last Admin: 05/08/21 07:18 Dose: 3 ml Documented by: NALLELY Labs CBC & Chem 7: 05/08/21 05:24 05/08/21 05:24 Labs: Laboratory Results - last 24 hr 05/07/21 05/07/21 05/07/21 11:17 15:46 16:36 MCV MCH MCHC RDW Plt Count MPV Absolute Nucleated RBC Nucleated RBC % (auto) Anion Gap Estim Creat Clear Calc Estimated GFR POC Glucose 198 H 201 H Random Glucose Calcium Vancomycin Trough 15.3 05/07/21 05/08/21 05/08/21 19:38 05:24 05:24 MCV 92.9 MCH 30.7 MCHC 33.0 RDW 12.0 Plt Count 209 MPV 12.0 Absolute Nucleated RBC 0.000 Nucleated RBC % (auto) 0.0 Anion Gap 10 L Estim Creat Clear Calc 100.5 Estimated GFR > 60 POC Glucose 194 H Random Glucose 229 H Calcium 8.7 Vancomycin Trough 05/08/21 07:14 MCV MCH MCHC RDW Plt Count MPV Absolute Nucleated RBC Nucleated RBC % (auto) Anion Gap Estim Creat Clear Calc Estimated GFR POC Glucose 189 H Random Glucose Calcium Vancomycin Trough Microbiology Microbiology Results: Microbiology 05/05/21 18:31 Blood Culture - Preliminary Blood - Venous No growth after 48 hours. 05/05/21 17:54 Blood Culture - Preliminary Blood - Venous No growth after 48 hours. Assessment and Plan (1) Hyperglycemia: Status: Acute (2) Diabetic foot infection: Status: Acute (3) Osteomyelitis: Status: Acute Plan 45-year-old male with diabetes noncompliant with his insulin presents to the hospital with complaints of non-healing foot wound #? Acute Diabetic wound right 5th toe distal phalanx with osteomyelitis status post right 5th toe amputation postoperative day 1, good pain control x-ray of the foot showed osteomyelitis distal phalanx right 5th toe with elevated ESR and CRP on IV vancomycin day 3 since toe removed will DC antibiotic in next 24-48h blood cultures x2 negative, no evidence of sepsis # ? hyperglycemia with history of diabetes mellitus on insulin ? noncompliance with insulin, blood sugars in 400s on arrival currently blood sugars improved to 200 range hemoglobin A1c 14 ? continue Lantus 40 units, increase sliding scale insulin, continue diabetic diet # morbid obesity weight reduction low-calorie diet recommended, obesity contributing to poor blood sugar control # hypertension on lisinopril, soft BP this morning, will hold lisinopril 20mg today and resume low-dose lisinopril 10 mg tomorrow, since noted to have stable blood pressures since admission with few high readings ? ?DVT prophylaxis:? lovenox. Quality Stroke Does the patient have a stroke diagnosis?: No VTE Prior VTE?: No VTE Risk Level:: Medical - moderate - high VTE Device Contraindication: Treatment Not Indicated VTE Drug Contraindication: N/A - Med Ordered
[2021-05-08 11:07] LABS: Glucose, Whole Blood 291 mg/dL (60-115)
[2021-05-08 11:12] VITALS: BP 118/61; PULSE 83; RESP 16; TEMP 37.2; O2SAT 92
[2021-05-08] MEDS: Enoxaparin Sodium 40 MG/0.4 ML SYRINGE SUBCUT (11:35)
[2021-05-08 15:21] VITALS: BP 117/59; PULSE 87; RESP 16; TEMP 37.6; O2SAT 91
[2021-05-08 16:43] LABS: Glucose, Whole Blood 273 mg/dL (60-115)
[2021-05-08 19:47] VITALS: BP 158/84; PULSE 86; RESP 16; TEMP 36.7; O2SAT 95
[2021-05-08 20:09] LABS: Glucose, Whole Blood 227 mg/dL (60-115)
[2021-05-08] MEDS: Insulin Glargine,Hum.rec.anlog 100 UNIT/ML 10 ML VIAL 40 UNIT SUBCUT (21:19)
[2021-05-08] MEDS: Atorvastatin Calcium 80 MG TABLET PO (21:19)
[2021-05-08 23:19] VITALS: BP 137/70; PULSE 82; RESP 14; TEMP 36.8; O2SAT 92
[2021-05-09 03:57] VITALS: BP 158/84; PULSE 81; RESP 14; TEMP 37.1; O2SAT 93
[2021-05-09 04:40] LABS: Vancomycin Trough 19.4 mcg/mL (10.0-20.0)
[2021-05-09] MEDS: vancomycin HCL 1,000 MG in 0.9 % Sodium Chloride 250 ML 270 MG IV (05:15)
[2021-05-09 07:21] VITALS: BP 144/73; PULSE 80; RESP 16; TEMP 37.2; O2SAT 92
[2021-05-09 07:27] LABS: Glucose, Whole Blood 137 mg/dL (60-115)
[2021-05-09 08:15] LABS: Estimated Glomerular Filt Rate 51
[2021-05-09] MEDS: 0.9 % Sodium Chloride Flush 3 ML SYRINGE IVFLUSH ×2 (08:35→20:40)
[2021-05-09] MEDS: Aspirin 81 MG TAB.CHEW PO (08:37)
[2021-05-09] MEDS: Enoxaparin Sodium 40 MG/0.4 ML SYRINGE SUBCUT (10:12)
--- NOTE | 2021-05-09 10:37 | HE.PHANOTE ---
VANCOMYCIN DOSING ADDENDUM BASED ON TROUGH OF 19.4 DOSE DECREASED TO [id number]. This mornings dose was already given at 0600. Next dose scheduled for 05/10. As cr increased to 1.5 targeting a lower AUC of 372mg/l hr and dose on hold until random comes back in AM.
--- NOTE | 2021-05-09 10:51 | P.PNIM_ITS ---
Subjective Subjective Date of Service: 05/09/21 Interval History: s/p amputation of toe due to osteo, pain is conttolled, glucose level is also better, has romaine Review of Systems TALCER no headache, no dizziness CVS no chest pain respiratory no cough, no sputum production Physical Exam 2 Vital Signs: Vital Signs: Last Vital Signs Temp 99.0 F 05/09/21 07:21 Pulse 80 05/09/21 07:21 Resp 16 05/09/21 07:21 BP 144/73 H 05/09/21 07:21 Pulse Ox 92 05/09/21 07:21 BMI result Body Mass Index 45.4 Const: Other: General ? Awake alert resting in bed, no acute distress.? Neck? no JVD. CVS? regular rate rhythm, Respiratory lungs clear to auscultation, no respiratory distress. Gastrointestinal abdomen soft, nontender, bowel sounds audible Extremities no edema, good peripheral pulses Right foot sutures in place some serosanguineous drainage noted mild surrounding erythema/ clean plantar ulcer Neuro nonfocal moving all 4 extremity speech clear. Skin no rash Objective Data Active Medications Acetaminophen (Acetaminophen 325 Mg Tablet) 650 mg PO Q6H PRN PRN Reason: Pain, Mild (Pain Scale 1-3) Aspirin (Aspirin 81 Mg Tab.Chew) 81 mg PO DAILY [facility] Last Admin: 05/09/21 08:37 Dose: 81 mg Documented by: VIET Atorvastatin Calcium (Atorvastatin Calcium 80 Mg Tablet) 80 mg PO BEDTIME [facility] Last Admin: 05/08/21 21:19 Dose: 80 mg Documented by: NICOLE Dextrose (Dextrose 50 % 25 Gm/50 Ml Syringe) 25 gm IVPUSH Q15M PRN; Protocol PRN Reason: per Hypoglycemia Standing Ord. Docusate Sodium (Docusate Sodium 100 Mg Capsule) 100 mg PO DAILY PRN PRN Reason: Constipation Enoxaparin Sodium (Enoxaparin Sodium 40 Mg/0.4 Ml Syringe) 40 mg SUBCUT Q24H [facility] Last Admin: 05/09/21 10:12 Dose: 40 mg Documented by: VIET Glucose (Glucose Gel 15 Gm Gel..Gram.) 15 gm PO Q15M PRN; Protocol PRN Reason: per Hypoglycemia Standing Ord. Promethazine HCl 12.5 mg/ (Sodium Chloride) 50.5 mls @ 202 mls/hr IV Q6H PRN PRN Reason: nausea/vomiting Vancomycin HCl 1,000 mg/ (Sodium Chloride) 270 mls @ 270 mls/hr IV Q24H [facility] Insulin Glargine (Insulin Glargine,Hum.Rec.Anlog 100 Unit/Ml 10 Ml Vial) 40 unit SUBCUT BEDTIME [facility] Last Admin: 05/08/21 21:19 Dose: 40 unit Documented by: NICOLE Insulin Human Lispro (Insulin Lispro 100 Unit/Ml 3 Ml Vial) 0 unit SUBCUT QIDACHS [facility]; Protocol Last Admin: 05/09/21 07:21 Dose: Not Given Documented by: ZACARIAS Non-Admin Reason: No Insulin Coverage Lisinopril (Lisinopril 10 Mg Tablet) 10 mg PO DAILY [facility]; Protocol Morphine Sulfate (Morphine Sulfate 4 Mg/Ml Cartridge) 3 mg IVPUSH Q3H PRN; Protocol PRN Reason: Pain, Severe (Pain Scale 7-10) Ondansetron HCl (Ondansetron Hcl 4 Mg/2 Ml Vial) 4 mg IVPUSH Q8H PRN PRN Reason: Nausea and Vomiting Last Admin: 05/08/21 07:17 Dose: 4 mg Documented by: NALLELY Oxycodone HCl (Oxycodone Hcl Immed Release 5 Mg Tablet) 5 mg PO Q4H PRN PRN Reason: Pain, Moderate (Pain Scale 4-6 Last Admin: 05/08/21 15:48 Dose: 5 mg Documented by: NALLELY Pharmacy Consult (Consult Rx Perform Med Rec) 1 each MISCELLANE ONCE PRN PRN Reason: Consult order Pharmacy Consult (Consult Rx Vancomycin Dosing) 1 each MISCELLANE DAILY PRN PRN Reason: Consult order Sodium Chloride (0.9 % Sodium Chloride Flush 3 Ml Syringe) 3 ml IVFLUSH QSHIFT [facility] Last Admin: 05/09/21 08:35 Dose: 3 ml Documented by: VIET Labs CBC & Chem 7: 05/08/21 05:24 05/09/21 04:10 Labs: Laboratory Results - last 24 hr 05/08/21 05/08/21 05/08/21 11:01 16:39 19:58 Estim Creat Clear Calc Estimated GFR POC Glucose 291 H 273 H 227 H Vancomycin Trough 05/09/21 05/09/2122 04:10 04:10 07:20 Estim Creat Clear Calc 75.0 Estimated GFR 51 POC Glucose 137 H Vancomycin Trough 19.4 Assessment and Plan (1) Hyperglycemia: Status: Acute (2) Diabetic foot infection: Status: Acute (3) Osteomyelitis: Status: Acute Plan 45-year-old male with diabetes noncompliant with his insulin presents to the hospital with complaints of non-healing foot wound #? Acute Diabetic wound right 5th toe distal phalanx with osteomyelitis s/p right 5th toe amputation postoperative day 2, good pain control On Vanco but I don't think it is necessary with removal of source of infection # ? hyperglycemia with history of diabetes mellitus on insulin--better control. Continue Insulin Generally not well controlled at home A1C is 14 # morbid obesity weight reduction low-calorie diet recommended, obesity contributing to poor blood sugar control # hypertension on lisinopril, soft BP this morning, will hold lisinopril 20mg today and resume low-dose lisinopril 10 mg tomorrow, since noted to have stable blood pressures since admission with few high readings #ROMAINE--not sure of etiology Creatinine is 1.5 today, IVF and stop vanco ? ?DVT prophylaxis:? lovenox. Quality Stroke Does the patient have a stroke diagnosis?: No VTE Prior VTE?: No VTE Risk Level:: Medical - moderate - high VTE Device Contraindication: Treatment Not Indicated VTE Drug Contraindication: N/A - Med Ordered
[2021-05-09 11:23] LABS: Glucose, Whole Blood 257 mg/dL (60-115)
[2021-05-09] MEDS: lisinopriL 10 MG TABLET PO (11:40)
[2021-05-09] MEDS: Insulin Lispro 100 UNIT/ML 3 ML VIAL SUBCUT ×3 (11:41→20:39)
[2021-05-09] MEDS: 0.9 % Sodium Chloride 1,000 ML 100 ML IVCONT ×2 (11:42→20:43)
[2021-05-09 11:57] VITALS: BP 148/76; PULSE 83; RESP 16; TEMP 36.7; O2SAT 95
--- NOTE | 2021-05-09 13:52 | P.PNGS_ITS ---
Subjective Subjective Date of Service: 05/13/21 Interval history: denies complaints good pain control asking to go home Physical Exam Vital Signs: Vital Signs: Last Vital Signs Temp 98.1 F 05/09/21 11:57 Pulse 83 05/09/21 11:57 Resp 16 05/09/21 11:57 BP 148/76 H 05/09/21 11:57 Pulse Ox 95 05/09/21 11:57 BMI result Body Mass Index 45.4 Const: General: comfortable and no acute distress Cardio: Rate: regular rate Extrem: Other: 5th toe amputation site, dry, no discharge Objective Data Active Medications Acetaminophen (Acetaminophen 325 Mg Tablet) 650 mg PO Q6H PRN PRN Reason: Pain, Mild (Pain Scale 1-3) Aspirin (Aspirin 81 Mg Tab.Chew) 81 mg PO DAILY [facility] Last Admin: 05/09/21 08:37 Dose: 81 mg Documented by: VIET Atorvastatin Calcium (Atorvastatin Calcium 80 Mg Tablet) 80 mg PO BEDTIME [facility] Last Admin: 05/08/21 21:19 Dose: 80 mg Documented by: NICOLE Dextrose (Dextrose 50 % 25 Gm/50 Ml Syringe) 25 gm IVPUSH Q15M PRN; Protocol PRN Reason: per Hypoglycemia Standing Ord. Docusate Sodium (Docusate Sodium 100 Mg Capsule) 100 mg PO DAILY PRN PRN Reason: Constipation Enoxaparin Sodium (Enoxaparin Sodium 40 Mg/0.4 Ml Syringe) 40 mg SUBCUT Q24H [facility] Last Admin: 05/09/21 10:12 Dose: 40 mg Documented by: VIET Glucose (Glucose Gel 15 Gm Gel..Gram.) 15 gm PO Q15M PRN; Protocol PRN Reason: per Hypoglycemia Standing Ord. Promethazine HCl 12.5 mg/ (Sodium Chloride) 50.5 mls @ 202 mls/hr IV Q6H PRN PRN Reason: nausea/vomiting Sodium Chloride (Ns) 1,000 mls @ 100 mls/hr IVCONT .Q10H [facility] Last Admin: 05/09/21 11:42 Dose: 100 mls/hr Documented by: ZACARIAS Insulin Glargine (Insulin Glargine,Hum.Rec.Anlog 100 Unit/Ml 10 Ml Vial) 40 unit SUBCUT BEDTIME [facility] Last Admin: 05/08/21 21:19 Dose: 40 unit Documented by: KELLEYQC Insulin Human Lispro (Insulin Lispro 100 Unit/Ml 3 Ml Vial) 0 unit SUBCUT QIDACHS [facility]; Protocol Last Admin: 05/09/21 11:41 Dose: 8 unit Documented by: ZACARIAS Lisinopril (Lisinopril 10 Mg Tablet) 10 mg PO DAILY [facility]; Protocol Last Admin: 05/09/21 11:40 Dose: 10 mg Documented by: ZACARIAS Morphine Sulfate (Morphine Sulfate 4 Mg/Ml Cartridge) 3 mg IVPUSH Q3H PRN; Protocol PRN Reason: Pain, Severe (Pain Scale 7-10) Ondansetron HCl (Ondansetron Hcl 4 Mg/2 Ml Vial) 4 mg IVPUSH Q8H PRN PRN Reason: Nausea and Vomiting Last Admin: 05/08/21 07:17 Dose: 4 mg Documented by: NALLELY Oxycodone HCl (Oxycodone Hcl Immed Release 5 Mg Tablet) 5 mg PO Q4H PRN PRN Reason: Pain, Moderate (Pain Scale 4-6 Last Admin: 05/08/21 15:48 Dose: 5 mg Documented by: NALLELY Pharmacy Consult (Consult Rx Perform Med Rec) 1 each MISCELLANE ONCE PRN PRN Reason: Consult order Pharmacy Consult (Consult Rx Vancomycin Dosing) 1 each MISCELLANE DAILY PRN PRN Reason: Consult order Sodium Chloride (0.9 % Sodium Chloride Flush 3 Ml [facility]) [facility] Admin: 05/09/21 08:35 Dose: 3 ml Documented by: NORIJ Labs CBC & Chem 7: 05/08/21 05:24 05/10/21 05:46 Labs: Laboratory Results - last 24 hr 05/08/21 05/08/21 05/09/21 16:39 19:58 04:10 Estim Creat Clear Calc Estimated GFR POC Glucose 273 H 227 H Vancomycin Trough 19.4 05/09/21 05/09/21 05/09/21 04:10 07:20 11:19 Estim Creat Clear Calc 75.0 Estimated GFR 51 POC Glucose 137 H 257 H Vancomycin Trough Procedures Date of Service Date of Service: 05/09/21 Progress Note: A&P Assessment and plan (1) Osteomyelitis: Status: Acute Assessment and Plan: Status post toe amp, 5th toe amputation site clean and dry sutures in place patient advised to not put weight on the forefoot of the right foot dry dressings daily when discharged, will need to see me in the office for postop visit in about 2 weeks. Plan . Fall Risk Details Current Medications: Current Medications Acetaminophen (Acetaminophen 325 Mg Tablet) 650 mg PO Q6H PRN PRN Reason: Pain, Mild (Pain Scale 1-3) Aspirin (Aspirin 81 Mg Tab.Chew) 81 mg PO DAILY [facility] Last Admin: 05/09/21 08:37 Dose: 81 mg Documented by: Atorvastatin Calcium (Atorvastatin Calcium 80 Mg Tablet) 80 mg PO BEDTIME [facility] Last Admin: 05/08/21 21:19 Dose: 80 mg Documented by: Dextrose (Dextrose 50 % 25 Gm/50 Ml Syringe) 25 gm IVPUSH Q15M PRN; Protocol PRN Reason: per Hypoglycemia Standing Ord. Docusate Sodium (Docusate Sodium 100 Mg Capsule) 100 mg PO DAILY PRN PRN Reason: Constipation Enoxaparin Sodium (Enoxaparin Sodium 40 Mg/0.4 Ml Syringe) 40 mg SUBCUT Q24H [facility] Last Admin: 05/09/21 10:12 Dose: 40 mg Documented by: Glucose (Glucose Gel 15 Gm Gel..Gram.) 15 gm PO Q15M PRN; Protocol PRN Reason: per Hypoglycemia Standing Ord. Promethazine HCl 12.5 mg/ (Sodium Chloride) 50.5 mls @ 202 mls/hr IV Q6H PRN PRN Reason: nausea/vomiting Sodium Chloride (Ns) 1,000 mls @ 100 mls/hr IVCONT .Q10H [facility] Last Admin: 05/09/21 11:42 Dose: 100 mls/hr Documented by: Insulin Glargine (Insulin Glargine,Hum.Rec.Anlog 100 Unit/Ml 10 Ml Vial) 40 unit SUBCUT BEDTIME [facility] Last Admin: 05/08/21 21:19 Dose: 40 unit Documented by: Insulin Human Lispro (Insulin Lispro 100 Unit/Ml 3 Ml Vial) 0 unit SUBCUT QIDACHS [facility]; Protocol Last Admin: 05/09/21 11:41 Dose: 8 unit Documented by: Lisinopril (Lisinopril 10 Mg Tablet) 10 mg PO DAILY [facility]; Protocol Last Admin: 05/09/21 11:40 Dose: 10 mg Documented by: Morphine Sulfate (Morphine Sulfate 4 Mg/Ml Cartridge) 3 mg IVPUSH Q3H PRN; Protocol PRN Reason: Pain, Severe (Pain Scale 7-10) Ondansetron HCl (Ondansetron Hcl 4 Mg/2 Ml Vial) 4 mg IVPUSH Q8H PRN PRN Reason: Nausea and Vomiting Last Admin: 05/08/21 07:17 Dose: 4 mg Documented by: Oxycodone HCl (Oxycodone Hcl Immed Release 5 Mg Tablet) 5 mg PO Q4H PRN PRN Reason: Pain, Moderate (Pain Scale 4-6 Last Admin: 05/08/21 15:48 Dose: 5 mg Documented by: Pharmacy Consult (Consult Rx Perform Med Rec) 1 each MISCELLANE ONCE PRN PRN Reason: Consult order Pharmacy Consult (Consult Rx Vancomycin Dosing) 1 each MISCELLANE DAILY PRN PRN Reason: Consult order Sodium Chloride (0.9 % Sodium Chloride Flush 3 Ml Syringe) [facility] Last Admin: 05/09/21 08:35 Dose: 3 ml Documented by: Time Spent With Patient Time: Total time spent is greater than 50% in coordination of care (as documented) at patient's floor/unit and/or counseling patient: Time with patient: 15 - 24 minutes Quality Stroke Does the patient have a stroke diagnosis?: No VTE Prior VTE?: No VTE Risk Level:: Medical - moderate - high VTE Device Contraindication: Treatment Not Indicated VTE Drug Contraindication: N/A - Med Ordered
--- NOTE | 2021-05-09 14:12 | PC.NURSE ---
Skin/wound assessement completed. patient has an amp site on right foot from 5th toe removal and a diabetic ulcer on right plantar foot. Cleansed with wound cleanser, Xeroform applied to amp incision and silver alginate applied to diabetic ulcer wound bed covered with non woven gauze and roll gauze. No other skin issues noted at this time.
[2021-05-09 15:16] VITALS: BP 166/84; PULSE 76; RESP 18; TEMP 36.6; O2SAT 95
[2021-05-09 16:18] LABS: Glucose, Whole Blood 250 mg/dL (60-115)
[2021-05-09 19:05] VITALS: BP 164/88; PULSE 75; RESP 18; TEMP 36.3; O2SAT 96
[2021-05-09 20:11] LABS: Glucose, Whole Blood 170 mg/dL (60-115)
[2021-05-09] MEDS: Insulin Glargine,Hum.rec.anlog 100 UNIT/ML 10 ML VIAL 40 UNIT SUBCUT (20:39)
[2021-05-09] MEDS: Atorvastatin Calcium 80 MG TABLET PO (20:39)
[2021-05-09 23:39] VITALS: BP 147/85; PULSE 72; RESP 18; TEMP 36.9; O2SAT 95
[2021-05-10 03:08] VITALS: BP 137/81; RESP 18; TEMP 36.4; O2SAT 95
[2021-05-10 06:55] LABS: Creatinine Clr Calc Pharmacy 111.5; Estimated Glomerular Filt Rate > 60
[2021-05-10] MEDS: 0.9 % Sodium Chloride 1,000 ML 100 ML IVCONT (07:46)
[2021-05-10 08:00] VITALS: BP 132/67; PULSE 74; RESP 20; TEMP 36.2; O2SAT 98
[2021-05-10 08:24] LABS: Glucose, Whole Blood 138 mg/dL (60-115)
[2021-05-10] MEDS: Aspirin 81 MG TAB.CHEW PO (08:36)
[2021-05-10] MEDS: lisinopriL 10 MG TABLET PO (08:36)
--- NOTE | 2021-05-10 08:37 | PM.DS ---
DS: Providers Provider Date of Service: 05/10/21 Date of admission: 05/05/21 20:37 Primary care physician: Laura Lorenz NP Consults: 05/05/21 20:34 Consult to Infectious Diseases Routine Consulting Provider: Simran Johnson Reason for consultation: diabetic foot wound Has provider been notified: No 05/05/21 20:47 Consult to General Surgery Routine Consulting Provider: Dejon Tang Reason for consultation: diabetic foot wound Has provider been notified: No DS: Diagnosis Discharge Diagnosis (1) Osteomyelitis: Status: Acute DS: Summary Hospital Course Hospital Course: Chief Complaint: non-healing foot ulcer ?this is a 45-year-old male with past medical history of diabetes, noncompliant with ? Insulin presents to the hospital with complaints of nonhealing right foot wound.? Patient reports that this has been going on for the past 3 weeks, he was seen at [facility], has a history of osteomyelitis with amputation of his 3rd right toe, he was given p.o. antibiotics, finished about a week ago, with worsening 5th toe wound, that is now draining and painful. patient reports malodorous bloody drainage, pain that shoots of to his leg, denies any fever or chills, no chest pain, no shortness of breath, no abdominal pain nausea or vomiting, no diarrhea constipation, no urinary symptoms and no lower extremity edema otherwise.? Patient reports that he stopped taking his insulin about 2 months ago due to? Not seeing his PCP.? He has been managing his high glucose with fluid intake. ? On arrival to the ED patient hemodynamically stable with no significant abnormal vitals Labs are significant for? WBC count of 6.7, hemoglobin of 12.5, ESR of 86, glucose of 400, CRP of 2.86, COVID-19 negative Foot x-ray shows destruction of the distal phalanges of the 5th toe consistent with osteomyelitis ?patient will be admitted for further management Hosptial course: Acute Diabetic wound right 5th toe distal phalanx with osteomyelitis this was deemed not viable to antibiotics and patient opted to have ampuation which was perform by Dr. Abarca on 05/07 without compication and he continued to be IV antibiotics with Vancomycin following the procedure but at this point there is not indication for further antibiotics given the margins were cleaned and source of infection removed. To have regular dressing changes and to follow up with Dr. Abarca in a week. # ? hyperglycemia with history of diabetes mellitus on insulin--there is hign concer of non compliane given hgb A1C of 14. Here sugars are controlled and will advise compliance and regular follow up with PCP and possible an endo consult on outpatient basis to be arranged by PCP. Presently on Lantus 40 and SSI ?? ? # ? morbid obesity weight reduction low-calorie diet recommended, obesity contributing to poor blood sugar control # ?Hypotension--resolved likely due to MAU #ROMAINE--due to hypotension and MAU this has resolved. Time Spent with Patient Time attestation: Total time spent providing and/or coordinating discharge services: Discharge coordination time: Greater than 30 minutes Quality: Stroke Does the patient have a stroke diagnosis?: No Physical Exam Vital Signs: Vital Signs: Last Vital Signs Temp 97.1 F 05/10/21 08:00 Pulse 74 05/10/21 08:00 Resp 20 05/10/21 08:00 BP 132/67 05/10/21 08:00 Pulse Ox 98 05/10/21 08:00 BMI result Body Mass Index 45.4 DS: Data Data Completed and Pending Completed studies during hospitalization [Text1]: Pending at discharge 05/07/21 14:12 Surgical [PTH] Routine Labs on day of discharge: Laboratory Results - last 24 hr 05/09/21 05/09/21 05/09/21 11:19 16:06 20:07 Creatinine Estim Creat Clear Calc Estimated GFR POC Glucose 257 H 250 H 170 H Random Vancomycin 05/10/21 05/10/21 05/10/21 05:46 05:46 08:19 Creatinine 1.01 Estim Creat Clear Calc 111.5 Estimated GFR > 60 POC Glucose 138 H Random Vancomycin 11.0 L Preliminary micro results at discharge 05/05/21 18:31 Blood Culture - Preliminary Blood - Venous No growth after 48 hours. 05/05/21 17:54 Blood Culture - Preliminary Blood - Venous No growth after 48 hours. Discharge Plan Discharge Anticipated Discharge Date/Time: 05/10/21 08:33 Patient Disposition: Home, Self-Care Discharge Diagnosis: Osteomyltis, ROMAINE Referrals: STEPHEN PARSONA [Other] - 1 Day (START OF CARE WILL BE Wednesday05/10/21) Laura Lorenz STORE MANAGER [Primary Care Provider] - 05/16/21 11:30 am Discharge Medications: New oxycodone 5 mg Tablet 5 mg PO Q4H PRN (Reason: Pain, Moderate (Pain Scale 4-6) Qty: 15 0RF lisinopril 10 mg Tablet 10 mg PO DAILY Qty: 30 0RF Protocol: Hold for SBP< HOLD for SBP < : 90 (DME) FreeStyle Lite Strips Strip Qty: 100 0RF Rx Instructions: Test four times a day or as directed. (DME) blood-glucose meter [FreeStyle Lite Meter] Kit Qty: 1 0RF Rx Instructions: As Directed alcohol swabs Pads, Medicated 1 pad TOPICAL QIDACHS Qty: 100 0RF Rx Instructions: Use four times a day or as directed. (DME) lancets [FreeStyle Lancets] 28 gauge Misc Qty: 100 0RF Rx Instructions: Test four times a day or as directed. (DME) pen needle, diabetic 32 gauge x 1/4 Needle Qty: 100 0RF Rx Instructions: Use four times a day or as directed. Continued atorvastatin 80 mg Tablet 80 mg PO DAILY 0RF aspirin 81 mg Tablet,Chewable 81 mg PO DAILY 0RF insulin lispro [Humalog KwikPen Insulin] 100 unit/mL Insulin Pen 1 sliding scale dose SUBCUT TID Qty: 1 0RF Protocol: Insulin Correction Scale Less than or equal to 110 ---- Give (units): 0 111 to 150 Give (units): 0 151 to 200 Give (units): 2 201 to 250 Give (units): 4 251 to 300 Give (units): 6 301 to 350 Give (units): 8 Greater than 350 Give (units): 10 Call MD if Blood Glucose > : 350 Orlando Lopezar U-100 Insulin 100 unit/mL (3 mL) Insulin Pen 40 unit SUBCUT DAILY Qty: 2 0RF Discontinued lisinopril 20 mg Tablet 20 mg PO DAILY 0RF Discharge Orders: Discharge Order (Routine); Ordered 05/10/21 Ordered By: Jeramie Kruger Diet: advance to usual diet and diabetic diet Activity on Discharge: As tolerated Stand Alone Forms: Patient Portal Discharge page Activity Restrictions/Additional Instructions: Cleanse right foot amputation site and pantar ulcer with wound cleanser then apply Xeroform to ampuatation inision and silver alginate to planter ulcer, cover with gauze and roll gauze daily Care Plan Goals: Full recovery from ampuration Health Concerns: diabetic foot ulcer, post ampuation Plan of Treatment: Follow dressing changes instruction and follow up with surgeon Assessment: As above
--- NOTE | 2021-05-10 08:44 | W.MHC.F2F ---
Service Date Service Date: 05/10/21 Encounter Date of encounter: 05/10/21 Reasons for Services Signs and symptoms assessed: ampuated foot Reason for [facility]: wound care Homebound: Leaving the home is medically contraindicated at this time without the asist of a device and/or another person due th the listed conditions above and below. Reason homebound: unsteady gait / fall risk Homebound supporting statement: Home boound due to ampuation of the foot causing pain and limiitted ambulation and therefore needs the assistance of another person Certification: Based on the above findings, I certify that this patient is confined to the home and needs intermittent [facility] care, physical therapy and/or speech therapy, or continues to need occupational therapy. The patient is under my care, and I have initiated the establishment of the plan of care. The patient will be followed by a physician who will periodically review the plan of care.
[2021-05-10 11:36] VITALS: BP 148/78; PULSE 76; RESP 18; TEMP 36.4; O2SAT 98
[2021-05-10 11:54] LABS: Glucose, Whole Blood 242 mg/dL (60-115)
[2021-05-10] MEDS: Insulin Lispro 100 UNIT/ML 3 ML VIAL SUBCUT (12:13)
[2021-05-10] MEDS: Enoxaparin Sodium 40 MG/0.4 ML SYRINGE SUBCUT (12:14)
--- NOTE | 2021-05-10 14:14 | MHC.CM.PN ---
PT MEDICALLY CLEARED TO D/C HOME W/[facility] FOR SN, PT TO ARRANGE TRANSPORT. PER [facility] STAFF PT IS WAITING FOR A SCRIPT FROM [facility] FOR A SPECIAL BOOT, PT WILL D/C ONCE HE RECEIVES SCRIPT.
== END 2021-05-10 14:30 | disposition home or self-care (01) | DRG 617 ==
LOC: HO.ED 20:42 → HO.EDOVER 21:02 → HO.S3 05-06 07:41
PROVIDERS: Hospitalist; Physician Assistant; Surgery; Admitting Provider Internal Medicine; Emergency Provider Internal Medicine; PCP Nurse Practitioner Family; Visit Provider Internal Medicine
PROC: 0Y6X0Z0 Detachment at Right 5th Toe, Complete, Open Approach (ICD-10-PCS; principal; 2021-05-07 12:40)
DX: E11.69 Type 2 diabetes mellitus with other specified complication (principal); M86.9 Osteomyelitis, unspecified; Z68.42 Body mass index [BMI] 45.0-49.9, adult; L97.516 Non-pressure chronic ulcer of other part of right foot with bone involvement without evidence of necrosis; M86.171 Other acute osteomyelitis, right ankle and foot; E11.65 Type 2 diabetes mellitus with hyperglycemia; E66.01 Morbid (severe) obesity due to excess calories; N17.9 Acute kidney failure, unspecified; I95.9 Hypotension, unspecified; E11.621 Type 2 diabetes mellitus with foot ulcer; I10 Essential (primary) hypertension; Z91.14 Patient's other noncompliance with medication regimen; Z79.4 Long term (current) use of insulin; Z79.82 Long term (current) use of aspirin; Z79.899 Other long term (current) drug therapy
CPT/HCPCS: 36415; 73630; 80048; 80202; 82009; 82565; 82947; 83036; 83605; 85025; 85027; 85652; 86140; 87040; 87635; 88305; 88311; 96365; 96375; 99024; 99285; J0690; J0692; J1170; J1650; J2250; J2370; J2405; J3010; J3370

== ENCOUNTER → 2021-07-03 10:23 | Outpatient (BNVA) | payer OTHER, SELFPAY | PROVIDERS: PCP Nurse Practitioner Family; Referring Provider Nurse Practitioner Family; Visit Provider Surgery | DX: M86.9 Osteomyelitis, unspecified (principal); Z47.81 Encounter for orthopedic aftercare following surgical amputation; Z89.421 Acquired absence of other right toe(s); Z48.02 Encounter for removal of sutures | CPT/HCPCS: 99212 ==